=== PATIENT | male | born 1935 | race Caucasian/White ===

== ENCOUNTER 2021-08-26 14:49 | Inpatient (IN) | payer OTHER, MEDICARE, SELFPAY ==
[~2021-08-26] VITALS: Ht 162.6 cm; Wt 61.9 kg
[2021-08-26 14:50] VITALS: BP_SYST 136
[2021-08-26 15:54] LABS: BASOPHILS % (AUTO) 0.2 % (0.0-2.0); EOSINOPHILS % (AUTO) 0.3 % (0.0-4.0); HEMOGLOBIN 13.7 g/dL (14.0-18.0); LYMPHOCYTES # (AUTO) 0.6 K/uL (1.0-5.5); LYMPHOCYTES % (AUTO) 16.4 % (20.5-51.5); MEAN CORPUSCULAR HEMOGLOBIN 33 pg (27-31); MEAN CORPUSCULAR HGB CONC 34 % (32-36); MEAN CORPUSCULAR VOLUME 97 fL (79.0-98.0); MONOCYTES # (AUTO) 0.5 K/uL (0.0-1.0); NEUTROPHILS # (AUTO) 2.7 K/uL (1.8-7.7); NEUTROPHILS % (AUTO) 71.1 % (40.0-70.0); PLATELET COUNT (AUTO) 93 K/uL (130-430); RED BLOOD CELL COUNT(AUTO) 4.14 MIL/uL (4.2-6.2); RED CELL DISTRIBUTION WIDTH 12.8 % (9.0-15.0); WHITE BLOOD COUNT (AUTO) 3.8 K/uL (4.8-10.8)
[2021-08-26 16:21] LABS: ANION GAP 9 (5-15); CALCIUM 8.5 mg/dL (8.4-11.0); CHLORIDE 100 mmol/L (98-107); CREATININE 0.97 mg/dL (0.55-1.30); GLUCOSE 154 mg/dL (70-99); POTASSIUM 3.7 mmol/L (3.5-5.1); SODIUM SERUM 134 mmol/L (136-145); UREA NITROGEN, BLOOD 19 mg/dL (8-21)
[2021-08-26 16:24] LABS: PROTHROMBIN TIME 10.4 SECS (9.5-12.5)
[2021-08-26 16:35] LABS: ALANINE AMINOTRANSFERASE 67 U/L (12-78); ALBUMIN 3.5 g/dL (3.4-4.8); ASPARTATE AMINOTRANSFERASE 40 U/L (10-37); TOTAL BILIRUBIN 0.3 mg/dL (0.0-1.0)
[2021-08-26 16:39] LABS: ACETAMINOPHEN < 1 ug/mL (1-30); ALCOHOL, BLOOD < 3 mg/dL (<10)
[2021-08-26 17:04] LABS: ACETONE, SERUM NEGATIVE (NEGATIVE)
[2021-08-26 17:11] LABS: C-REACTIVE PROTEIN QUANT 1.6 mg/dL (0-0.5)
[2021-08-26 17:32] LABS: BILIRUBIN,URINE NEGATIVE (NEGATIVE); CLARITY/URINE CLEAR (CLEAR); COLOR,URINE YELLOW (YELLOW); GLUCOSE,URINE NEGATIVE (NEGATIVE); KETONES,URINE NEGATIVE (NEGATIVE); LEUKOCYTE ESTERASE ,URINE NEGATIVE (NEGATIVE); NITRITE, URINE NEGATIVE (NEGATIVE); PH,URINE 6.5 (5.0-8.0); PROTEIN URINE NEGATIVE (NEGATIVE)
[2021-08-26 17:41] LABS: BLOOD, URINE TRACE (NEGATIVE)
[2021-08-26 17:50] LABS: BARBITURATE, URINE NEGATIVE (NEG <=200); BENZODIAZEPINE, URINE NEGATIVE (NEG <=150); CANNABINOID, URINE POSITIVE (NEG <=50); COCAINE, URINE NEGATIVE (NEG <=150); METHAMPHETAMINES SCREEN,URINE NEGATIVE (NEG <=500); OPIATE, URINE NEGATIVE (NEG <=100); PHENCYCLIDINE SCREEN,URINE NEGATIVE (NEG <=25); UR TRICYCLIC ANTIDEPRESSANTS NEGATIVE (NEG <=300); URINE AMPHETAMINE NEGATIVE (NEG <=500); URINE METHADONE NEGATIVE (NEG <=200); URINE OXYCODONE SCREEN NEGATIVE (NEG <=100); URINE PROPOXYPHENE SCREEN NEGATIVE (NEG <=300)
[2021-08-26 17:59] LABS: BACTERIA,URINE RARE /HPF (None Seen); MUCUS,URINE 1+ /LPF (None Seen); WBC,URINE 0-3 /HPF (0-3)
[2021-08-26] MEDS ORDERED: SACU1TAB PO (19:44)
[2021-08-26] MEDS ORDERED: MEMA5TAB PO (19:44)
[2021-08-26] MEDS ORDERED: LEVO25TA7 PO (19:44)
[2021-08-26] MEDS ORDERED: TAMS-11 PO (19:44)
[2021-08-26] MEDS ORDERED: ESCI10TA PO (19:44)
[2021-08-26] MEDS ORDERED: FINA5TAB3 PO (19:44)
[2021-08-26] MEDS ORDERED: LIP40 PO (19:44)
[2021-08-26] MEDS ORDERED: MULT-1089 PO (19:44)
[2021-08-26] MEDS ORDERED: CLOP75TA32 PO (19:44)
[2021-08-26] MEDS ORDERED: ASPI-1393 PO (19:44)
[2021-08-26] MEDS ORDERED: ASPIRIN 325 MG TABLET PO ONE (21:15)
[2021-08-26] MEDS ORDERED: LR 1,000 ML IV SCH (21:15)
[2021-08-26 23:00] VITALS: BP_SYST 151
[2021-08-26] MEDS ORDERED: ENOXAPARIN SODIUM 60 MG/0.6 ML SYRINGE SUBCUT ONE (23:00)
[2021-08-26] MEDS ORDERED: DEXTROSE 50% JECT 50 ML DISP.SYRIN IVP PRN (23:00)
[2021-08-26] MEDS ORDERED: INSULIN REGULAR, HUMAN 100 UNITS/ML, 10 ML VIAL (humuLIN R) SUBCUT PRN (23:00)
[2021-08-27] VITALS: BP_SYST 128
[2021-08-27 04:00] VITALS: BP_SYST 132
[2021-08-27] MEDS: LEVOTHYROXINE SODIUM 0.025 MG TABLET PO SCH (06:06)
[2021-08-27 06:53] LABS: HEMATOCRIT 40.4 % (36-54); HEMOGLOBIN 13.6 g/dL (14.0-18.0); MEAN CORPUSCULAR HEMOGLOBIN 33 pg (27-31); MEAN CORPUSCULAR HGB CONC 34 % (32-36); MEAN CORPUSCULAR VOLUME 97 fL (79.0-98.0); PLATELET COUNT (AUTO) 90 K/uL (130-430); RED BLOOD CELL COUNT(AUTO) 4.16 MIL/uL (4.2-6.2); WHITE BLOOD COUNT (AUTO) 3.8 K/uL (4.8-10.8)
[2021-08-27 07:24] LABS: ALANINE AMINOTRANSFERASE 55 U/L (12-78); ALBUMIN 3.3 g/dL (3.4-4.8); ASPARTATE AMINOTRANSFERASE 29 U/L (10-37); CALCIUM 8.9 mg/dL (8.4-11.0); CHLORIDE 101 mmol/L (98-107); CREATININE 0.76 mg/dL (0.55-1.30); FREE T4 (FREE THYROXINE) 1.1 ng/dl (0.8-1.5); GLUCOSE 103 mg/dL (70-99); POTASSIUM 3.4 mmol/L (3.5-5.1); SODIUM SERUM 136 mmol/L (136-145); THYROID STIMULATING HORMONE 2.28 uIu/mL (0.36-3.74); TOTAL BILIRUBIN 0.4 mg/dL (0.0-1.0); UREA NITROGEN, BLOOD 14 mg/dL (8-21)
[2021-08-27 08:00] VITALS: BP_SYST 137
[2021-08-27] MEDS: MULTIVITAMINS TAB 1 TABLET PO SCH (08:27)
[2021-08-27] MEDS: CLOPIDOGREL BISULFATE 75 MG TABLET PO SCH (08:27)
[2021-08-27] MEDS: MEMANTINE HCL 5 MG TABLET PO SCH (08:27)
[2021-08-27] MEDS: ASPIRIN 81 MG TABLET(ECOTRIN) PO SCH (08:27)
[2021-08-27] MEDS: FINASTERIDE 5 MG TABLET (PROSCAR) PO SCH (08:27)
[2021-08-27] MEDS: ENOXAPARIN SODIUM 60 MG/0.6 ML SYRINGE SUBCUT SCH ×2 (08:27→20:05)
[2021-08-27] MEDS: TAMSULOSIN HCL 0.4 MG CAP PO SCH ×2 (08:27→20:04)
[2021-08-27] MEDS: SACUBITRIL/VALSARTAN 24 MG-26 MG 1 TABLET PO SCH (08:28)
[2021-08-27 12:39] VITALS: BP_SYST 135
[2021-08-27 14:11] LABS: ANION GAP 11 (5-15)
[2021-08-27 16:32] VITALS: BP_SYST 130
[2021-08-27 17:20] LABS: CHOLESTEROL 117 mg/dL (<200); HDL CHOLESTEROL 36 mg/dL (>45); LDL CHOLESTEROL 88 mg/dL (<100); TRIGLYCERIDES 41 mg/dL (30-150)
[2021-08-27] MEDS ORDERED: POTASSIUM CHLORIDE 20 MEQ TAB.PRT.SR PO ONE (17:45)
[2021-08-27 20:00] VITALS: BP_SYST 133
[2021-08-27] MEDS ORDERED: ATORVASTATIN 20 MG TABLET PO SCH (21:00)
[2021-08-28 01:41] VITALS: BP_SYST 125
[2021-08-28] MEDS: LEVOTHYROXINE SODIUM 0.025 MG TABLET PO SCH (05:58)
[2021-08-28 06:06] LABS: FOLATE (FOLIC ACID) 11.2 ng/mL (>3.0)
[2021-08-28 07:15] LABS: BASOPHILS % (AUTO) 0.6 % (0.0-2.0); EOSINOPHILS % (AUTO) 1.3 % (0.0-4.0); HEMATOCRIT 38.6 % (36-54); HEMOGLOBIN 13.2 g/dL (14.0-18.0); LYMPHOCYTES # (AUTO) 1.3 K/uL (1.0-5.5); LYMPHOCYTES % (AUTO) 43.9 % (20.5-51.5); MEAN CORPUSCULAR HEMOGLOBIN 33 pg (27-31); MEAN CORPUSCULAR HGB CONC 34 % (32-36); MEAN CORPUSCULAR VOLUME 96 fL (79.0-98.0); MONOCYTES # (AUTO) 0.5 K/uL (0.0-1.0); NEUTROPHILS % (AUTO) 35.2 % (40.0-70.0); PLATELET COUNT (AUTO) 92 K/uL (130-430); RED BLOOD CELL COUNT(AUTO) 4.01 MIL/uL (4.2-6.2); RED CELL DISTRIBUTION WIDTH 12.9 % (9.0-15.0); WHITE BLOOD COUNT (AUTO) 2.9 K/uL (4.8-10.8)
[2021-08-28 07:17] LABS: BASOPHILS % (MANUAL) 0 % (0-2); EOSINOPHILS % (MANUAL) 0 % (0-7); LYMPHOCYTES % (MANUAL) 35 % (20-46); MONOCYTES % (MANUAL) 15 % (0-11)
[2021-08-28 07:47] LABS: ANION GAP 8 (5-15); CALCIUM 9.5 mg/dL (8.4-11.0); CHLORIDE 103 mmol/L (98-107); CREATININE 0.79 mg/dL (0.55-1.30); GLUCOSE 101 mg/dL (70-99); POTASSIUM 4.2 mmol/L (3.5-5.1); SODIUM SERUM 136 mmol/L (136-145); UREA NITROGEN, BLOOD 19 mg/dL (8-21)
[2021-08-28 08:08] VITALS: BP_SYST 130
[2021-08-28] MEDS: FINASTERIDE 5 MG TABLET (PROSCAR) PO SCH (08:41)
[2021-08-28] MEDS: CLOPIDOGREL BISULFATE 75 MG TABLET PO SCH (08:41)
[2021-08-28] MEDS: MULTIVITAMINS TAB 1 TABLET PO SCH (08:41)
[2021-08-28] MEDS: SACUBITRIL/VALSARTAN 24 MG-26 MG 1 TABLET PO SCH (08:41)
[2021-08-28] MEDS: ASPIRIN 81 MG TABLET(ECOTRIN) PO SCH (08:41)
[2021-08-28] MEDS: MEMANTINE HCL 5 MG TABLET PO SCH (08:41)
[2021-08-28] MEDS: TAMSULOSIN HCL 0.4 MG CAP PO SCH (08:42)
[2021-08-28] MEDS: ENOXAPARIN SODIUM 60 MG/0.6 ML SYRINGE SUBCUT SCH (08:46)
[2021-08-28] MEDS ORDERED: ESCITALOPRAM OXALATE 10 MG TABLET PO SCH (09:00)
[2021-08-28] MEDS ORDERED: CITALOPRAM HYDROBROMIDE 20 MG TABLET PO SCH (09:00)
[2021-08-28 11:40] VITALS: BP_SYST 125
[2021-08-28 15:33] VITALS: BP_SYST 131
[2021-08-28 17:11] VITALS: BP_SYST 131
== END 2021-08-28 20:50 | DRG 280 ==
LOC: SED 14:49 → STU 21:10
PROVIDERS: ADMIT Internal Medicine; ATTEND Internal Medicine
DX: I21.4 Non-ST elevation (NSTEMI) myocardial infarction (principal); G93.41 Metabolic encephalopathy; I69.951 Hemiplegia and hemiparesis following unspecified cerebrovascular disease affecting right dominant side; I42.9 Cardiomyopathy, unspecified; G91.2 (Idiopathic) normal pressure hydrocephalus; I50.9 Heart failure, unspecified; F02.80 Dementia in other diseases classified elsewhere, unspecified severity, without behavioral disturbance, psychotic disturbance, mood disturbance, and anxiety; G30.9 Alzheimer's disease, unspecified; E78.5 Hyperlipidemia, unspecified; E03.9 Hypothyroidism, unspecified; Z20.822 Contact with and (suspected) exposure to COVID-19; I11.0 Hypertensive heart disease with heart failure; N40.0 Benign prostatic hyperplasia without lower urinary tract symptoms; Z88.0 Allergy status to penicillin; Z79.82 Long term (current) use of aspirin; Z79.899 Other long term (current) drug therapy; Z98.2 Presence of cerebrospinal fluid drainage device; Z79.890 Hormone replacement therapy; Z79.02 Long term (current) use of antithrombotics/antiplatelets
CPT/HCPCS: 36415; 70450-TC; 71045; 76376; 80048; 80053; 80061; 80307; 81000; 82009; 82140; 82550; 82607; 82746; 82962; 83605; 83880; 84439; 84443; 84484; 85007; 85025; 85027; 85610-TC; 85730-TC; 86140; 87040-TC; 87081; 92610-GN; 93005; 93306; 96360; 97110-GP; 97116-GP; 97163-GP; 97530-GP; 99285; G0378; G0480; G0481; G0482; J1650

== ENCOUNTER 2021-09-15 13:09 | Inpatient (IN) | payer OTHER, MEDICARE, SELFPAY ==
--- NOTE | 2021-09-11 23:40 | NUR ---
ATB NEW ORDER ANTIBIOTIC ROCEPHIN AND ZITHROMAX TOLERATED. NO ADVERSE REACTIONS NOTED.
[~2021-09-15] VITALS: Ht 167.6 cm; Wt 65.8 kg
[~2021-09-15 13:09] MED LIST: ASPI-1393 PO; ESCI10TA PO; FINA5TAB3 PO; LEVO25TA7 PO; LIP40 PO; MEMA5TAB PO; MULT-1089 PO; SACU1TAB PO; TAMS-11 PO
[2021-09-15 13:47] VITALS: BP_SYST 159
--- NOTE | 2021-09-15 13:48 | NUR ---
Patient to ER bed 8 to gown for evaluation. Side rails up.
--- NOTE | 2021-09-15 13:50 | NUR ---
EDGAR Robins at bedside examining patient.
--- NOTE | 2021-09-15 14:00 | NUR ---
PT SENT FROM [facility] FOR EVALUATION OF LOW O2 SAT AND FEVER.
--- NOTE | 2021-09-15 14:00 | NUR ---
ER at bedside examining patient.
--- NOTE | 2021-09-15 14:30 | NUR ---
PT HAS NO RESP DISTRESS AT THIS TIME.PT VSS.CONTINUING TO MONITOR.
[2021-09-15 15:00] LABS: BASOPHILS % (AUTO) 0.4 % (0.0-2.0); HEMATOCRIT 39.6 % (36-54); HEMOGLOBIN 13.3 g/dL (14.0-18.0); LYMPHOCYTES # (AUTO) 0.2 K/uL (1.0-5.5); LYMPHOCYTES % (AUTO) 1.9 % (20.5-51.5); MEAN CORPUSCULAR HEMOGLOBIN 33 pg (27-31); MEAN CORPUSCULAR HGB CONC 34 % (32-36); MEAN CORPUSCULAR VOLUME 97 fL (79.0-98.0); MONOCYTES # (AUTO) 0.6 K/uL (0.0-1.0); MONOCYTES % (AUTO) 5.4 % (1.7-9.3); NEUTROPHILS # (AUTO) 10.2 K/uL (1.8-7.7); NEUTROPHILS % (AUTO) 92.3 % (40.0-70.0); PLATELET COUNT (AUTO) 112 K/uL (130-430); RED BLOOD CELL COUNT(AUTO) 4.08 MIL/uL (4.2-6.2); RED CELL DISTRIBUTION WIDTH 12.6 % (9.0-15.0)
[2021-09-15 15:16] LABS: ANION GAP 8 (5-15); CALCIUM 8.7 mg/dL (8.4-11.0); CHLORIDE 103 mmol/L (98-107); CREATININE 0.95 mg/dL (0.55-1.30); GLUCOSE 105 mg/dL (70-99); POTASSIUM 4.2 mmol/L (3.5-5.1); SODIUM SERUM 138 mmol/L (136-145); UREA NITROGEN, BLOOD 17 mg/dL (8-21)
[2021-09-15 15:22] LABS: ALANINE AMINOTRANSFERASE 46 U/L (12-78); ALBUMIN 3.7 g/dL (3.4-4.8); ASPARTATE AMINOTRANSFERASE 22 U/L (10-37); TOTAL BILIRUBIN 0.7 mg/dL (0.0-1.0)
--- NOTE | 2021-09-15 15:30 | NUR ---
SPOKE WITH FAMILY. PT PROVIDED FURTHER INFORMATION REGARDING PT PRIOR TO ARRIVAL OF EMS AT FACILITY. PT POSSSIBLY ASPIRATED WHILE EATING WITH FAMILY.
[2021-09-15] MEDS ORDERED: NACL 0.9% 1,000 ML IV ONE (16:00)
[2021-09-15] MEDS ORDERED: VANCOMYCIN HCL 1,000 MG in NS 250 ML IV ONE (17:30)
[2021-09-15] MEDS ORDERED: CEFEPIME 2 GM in D5W 100 ML IV ONE (17:30)
--- NOTE | 2021-09-15 18:30 | NUR ---
ADMISSION ORDERS RECEIVED. PT REMAINS STABLE. AFEBRILE.O2 SAT MAINTAINED AT 96% ON 2L NC.
[2021-09-15] MEDS ORDERED: VANCOMYCIN HCL 1000 MG/VIAL IV ONE (18:49)
--- NOTE | 2021-09-15 19:20 | NUR ---
PT ENDORSED TO TIFFANY BELCHER.
--- NOTE | 2021-09-15 20:03 | NUR ---
ASSUMED CARE OF PT FROM JEANIE BELCHER, PT IS BEING GIVEN VANCO AND AWAITING FOR A ROOM ASSIGNENT
--- NOTE | 2021-09-15 20:14 | NUR ---
PT IS FULL CODE
--- NOTE | 2021-09-15 20:15 | NUR ---
Medication reconciliation completed with information provided by FACILITY. Any prior medication reconciliation on file was reviewed and corrected.
--- NOTE | 2021-09-15 20:52 | NUR ---
Transfer to TELEMETRY- 122 via ACLS protocol. Licensed nurse present. IV present no signs or symptoms of infiltration.
--- NOTE | 2021-09-15 21:00 | NUR ---
ADMISSION NOTES RECEIVED PATIENT FROM ER ADMITTED FOR BILATERAL PNEUMONIA. PATIENT AWAKE/CONFUSED. DOES NOT INTERACT TO STAFF. DOES NOT ANSWER TO QUESTIONS. VITAL SIGNS STABLE. ADMISSION PROCESS INITIATED. BED IN LOWEST LOCKED POSITION WITH ALARM ON. PLACED CALL LIGHT WITH IN REACH.
[2021-09-15 21:15] VITALS: BP_SYST 154
[2021-09-15] MEDS ORDERED: LevALBUTEROL HCL 1.25 MG/0.5 ML *CONC.* VIAL.NEB (XOPENEX CONC.) INH PRN (22:00)
[2021-09-15] MEDS: NACL 0.9% 1,000 ML IV SCH (22:02)
--- NOTE | 2021-09-15 22:02 | NUR ---
IVF PATIENT STARTED ON IVF ORDERED. IV LINE INTACT AND PATENT.
[2021-09-15] MEDS ORDERED: cloNIDine HCL 0.1 MG TABLET PO PRN (22:15)
[2021-09-15] MEDS: cefTRIAXone 1 GM in D5W 50 ML IV SCH (22:51)
[2021-09-15] MEDS ORDERED: cefTRIAXone 1 GM VIAL ONE (22:52)
[2021-09-15] MEDS ORDERED: AZITHROMYCIN 500 MG/VIAL (ZITHROMAX) IV ONE (22:52)
[2021-09-15] MEDS: AZITHROMYCIN 500 MG in NS 250 ML IV SCH (23:16)
[2021-09-16 00:30] VITALS: BP_SYST 130
--- NOTE | 2021-09-16 02:01 | NUR ---
ROUNDS PATIENT RESTING IN BED. BREATHING UNLABORED. 02 SAT 98%.
--- NOTE | 2021-09-16 05:30 | NUR ---
AM CARE INCONTINENCE CARE DONE. PATIENT MORE CONVERSANT THIS MORNING.
[2021-09-16] MEDS: LEVOTHYROXINE SODIUM 0.025 MG TABLET PO SCH (06:09)
[2021-09-16 06:10] VITALS: BP_SYST 130
--- NOTE | 2021-09-16 06:44 | NUR ---
CLOSING NOTES PATIENT NEEDS ATTENDED. BED ALARM ON.
[2021-09-16] MEDS: LevALBUTEROL HCL 1.25 MG/0.5 ML *CONC.* VIAL.NEB (XOPENEX CONC.) INH SCH ×3 (07:01→22:40)
[2021-09-16 07:25] LABS: BASOPHILS % (AUTO) 0.1 % (0.0-2.0); HEMATOCRIT 36.5 % (36-54); HEMOGLOBIN 12.2 g/dL (14.0-18.0); LYMPHOCYTES # (AUTO) 1.1 K/uL (1.0-5.5); LYMPHOCYTES % (AUTO) 5.6 % (20.5-51.5); MEAN CORPUSCULAR HEMOGLOBIN 32 pg (27-31); MEAN CORPUSCULAR HGB CONC 33 % (32-36); MEAN CORPUSCULAR VOLUME 97 fL (79.0-98.0); MONOCYTES # (AUTO) 1.4 K/uL (0.0-1.0); MONOCYTES % (AUTO) 7.4 % (1.7-9.3); NEUTROPHILS # (AUTO) 16.4 K/uL (1.8-7.7); NEUTROPHILS % (AUTO) 86.9 % (40.0-70.0); PLATELET COUNT (AUTO) 99 K/uL (130-430); RED BLOOD CELL COUNT(AUTO) 3.76 MIL/uL (4.2-6.2); RED CELL DISTRIBUTION WIDTH 12.8 % (9.0-15.0); WHITE BLOOD COUNT (AUTO) 18.9 K/uL (4.8-10.8)
--- NOTE | 2021-09-16 08:01 | NUR ---
PATIENT IN BED, NO S/S OF DISTRESS, 2L NASAL CANULA O2 SAT >95%, INTERMITTENTLY SLEEPING, IV LFA 20G INTACT/PATENT RUNNING NS @75ML/HR, BED IN LOWEST LOCKED POSITION, SAFETY MEASURES IN PLACE, CALL LIGHT WITHIN REACH, WILL CONTINUE TO MONITOR.
[2021-09-16 08:16] LABS: ANION GAP 11 (5-15); CALCIUM 8.5 mg/dL (8.4-11.0); CHLORIDE 105 mmol/L (98-107); CREATININE 0.91 mg/dL (0.55-1.30); GLUCOSE 114 mg/dL (70-99); POTASSIUM 3.7 mmol/L (3.5-5.1); SODIUM SERUM 139 mmol/L (136-145); UREA NITROGEN, BLOOD 13 mg/dL (8-21)
[2021-09-16] MEDS: CITALOPRAM HYDROBROMIDE 20 MG TABLET PO SCH (08:38)
[2021-09-16] MEDS: MULTIVITAMINS TAB 1 TABLET PO SCH (08:38)
[2021-09-16] MEDS: ASPIRIN 81 MG TABLET(ECOTRIN) PO SCH (08:38)
[2021-09-16] MEDS: TAMSULOSIN HCL 0.4 MG CAP PO SCH ×3 (08:38→22:17)
[2021-09-16] MEDS: SACUBITRIL/VALSARTAN 24 MG-26 MG 1 TABLET PO SCH (08:39)
[2021-09-16] MEDS: NACL 0.9% 1,000 ML IV SCH ×2 (08:39→21:56)
[2021-09-16] MEDS: MEMANTINE HCL 5 MG TABLET PO SCH (08:39)
[2021-09-16] MEDS: FINASTERIDE 5 MG TABLET (PROSCAR) PO SCH (08:39)
[2021-09-16] MEDS ORDERED: ESCITALOPRAM OXALATE 10 MG TABLET PO SCH (09:00)
--- NOTE | 2021-09-16 10:09 | NUR ---
Nutrition Update : Dionicio Scale: 15 noted Pt admitted for Shortness of Breath. Diet: 2g Na, mechanical soft. BMI: UTD RD to follow per nutrition care standards.
[2021-09-16 11:29] VITALS: BP_SYST 109
--- NOTE | 2021-09-16 12:00 | NUR ---
PATIENT IN BED, NO S/S OF DISTRESS, TOLERATING CARE, PATIENT IS CONFUSED BUT FOLLOWS SIMPLE COMMANDS AND IS ABLE TO EAT HIS MEALS WIT ASSISTANCE, NO NEW NEEDS AT THIS TIME.
[2021-09-16 16:22] VITALS: BP_SYST 105
--- NOTE | 2021-09-16 18:32 | NUR ---
CONSULTATION PAGED/CALLED Reason for Consultation: ELEVATED TROP. TRENDING UP Person Who was Notified: EXCHANGE Consulting Physician: SUJATA Lan Manager Specialty: Ordering Physician: ANDREW
[2021-09-16 19:00] VITALS: BP_SYST 108
--- NOTE | 2021-09-16 19:00 | NUR ---
PATIENT IN BED, NO S/S OF DISTRESS, FED HIM HIS DINNER AND TOLERATED WELL, VITAL SIGNS STABLE, IV INTACT PATENT, NO NEW NEEDS AT THIS TIME ENDORSING CARE TO CLIENT EVALUATOR.
--- NOTE | 2021-09-16 19:15 | NUR ---
change of shift.pt.presents isolation status;droplet;covid19;pui status.pt.presents quiescent affect;calm,somnolent.pt.presents iv access location lt.hand intact iv fluids infusing.per flacc pain mgx pt.absent facial grimaces/body posturing.call light/telephone w/in access of the pt.
[2021-09-16 20:00] VITALS: BP_SYST 108
--- NOTE | 2021-09-16 20:00 | NUR ---
pt.assessed.v/s assessed values wnl.per flacc pain mgx pt.absent facial grimaces/body posturing.pt.assessed for cleanliness. pt.repositioned.iv access intact iv fluids infusing.general status stable.respiratory status stable;unlabored@room air.call light/telephone placed w/in access of the pt.
[2021-09-16] MEDS ORDERED: ENOXAPARIN SODIUM 40 MG/0.4 ML SYRINGE SUBCUT SCH (21:00)
--- NOTE | 2021-09-16 21:00 | NUR ---
2100p medications administered.medications required to be crushed mixture apple sauce.abx ivpb rocephin/zirthromax administered.iv fluids bag changed.per flacc pain mgx pt.absent facial grimaces/body posturing.pt.assessed for cleanliness pt.repositioned.call light/telephone placed w/in access of the pt.
[2021-09-16] MEDS: cefTRIAXone 1 GM in D5W 50 ML IV SCH (21:57)
[2021-09-16] MEDS: ATORVASTATIN 20 MG TABLET PO SCH (21:57)
[2021-09-16] MEDS: AZITHROMYCIN 500 MG in NS 250 ML IV SCH (21:58)
--- NOTE | 2021-09-16 22:00 | NUR ---
pt.assessed.pt.presents quiescent affect;calm,somnolent.per flacc pain mgx pt.absent facial grimaces/body posturing. pt.assessed for cleanliness.pt repositioned.iv access intact iv fluids infusing.call light/telephone placed w/in access of the pt.
[2021-09-17] VITALS: BP_SYST 142
--- NOTE | 2021-09-17 | NUR ---
pt.assessed.values wnl.per flacc pain mgx pt.absent facial grimaces/body posturing.pt.assessed for cleanliness.pt.repositioned. iv access intact iv fluids infusing.general status stable.respiratory status stable;unlabored.call light/telephone placed w/in access of the pt.
--- NOTE | 2021-09-17 02:00 | NUR ---
pt.assessed.pt.presents quiescent affect;calm,somnolent.per flacc pain mgx pt.absent facial grimaces/body posturing. iv access intact iv fluids infusing.pt.assessed for cleanliness.pt.repositioned.call light/telephone placed w/in access of the pt.
--- NOTE | 2021-09-17 04:00 | NUR ---
pt.assessed.pt.presents quiescent affect;calm,somnolent.per flacc pain mgx pt.absent facial grimaces/body posturing pt.assessed for cleanliness.pt.repositioned.scab;wound noticed.i have photographed the scab;wound;sacrum/buttocks. order for wcn placed.call light/telephone placed w/in access of the pt.
[2021-09-17] MEDS: LEVOTHYROXINE SODIUM 0.025 MG TABLET PO SCH (05:29)
--- NOTE | 2021-09-17 06:00 | NUR ---
pt.assessed.pt.presents quiescent affect;calm,somnolent.per flacc pain mgx pt.absent facial grimaces/body posturing.iv access intact iv fluids infusing.pt.assessed for cleanliness.pt.repositioned.i have administered synthroid 0700a dose@this hour.call light/telephone placed w/in access of the pt.
[2021-09-17 06:52] LABS: BASOPHILS % (AUTO) 0.4 % (0.0-2.0); EOSINOPHILS % (AUTO) 0.5 % (0.0-4.0); HEMATOCRIT 32.3 % (36-54); LYMPHOCYTES # (AUTO) 0.8 K/uL (1.0-5.5); LYMPHOCYTES % (AUTO) 11.1 % (20.5-51.5); MEAN CORPUSCULAR HEMOGLOBIN 33 pg (27-31); MEAN CORPUSCULAR HGB CONC 34 % (32-36); MEAN CORPUSCULAR VOLUME 97 fL (79.0-98.0); MONOCYTES # (AUTO) 0.8 K/uL (0.0-1.0); NEUTROPHILS # (AUTO) 5.9 K/uL (1.8-7.7); PLATELET COUNT (AUTO) 77 K/uL (130-430); RED BLOOD CELL COUNT(AUTO) 3.32 MIL/uL (4.2-6.2); RED CELL DISTRIBUTION WIDTH 13.1 % (9.0-15.0); WHITE BLOOD COUNT (AUTO) 7.6 K/uL (4.8-10.8)
[2021-09-17 07:38] LABS: ANION GAP 9 (5-15); CALCIUM 8.2 mg/dL (8.4-11.0); CHLORIDE 107 mmol/L (98-107); CREATININE 0.86 mg/dL (0.55-1.30); GLUCOSE 105 mg/dL (70-99); POTASSIUM 3.4 mmol/L (3.5-5.1); SODIUM SERUM 139 mmol/L (136-145); UREA NITROGEN, BLOOD 16 mg/dL (8-21)
[2021-09-17] MEDS: LevALBUTEROL HCL 1.25 MG/0.5 ML *CONC.* VIAL.NEB (XOPENEX CONC.) INH SCH ×3 (09:42→23:00)
[2021-09-17] MEDS: SACUBITRIL/VALSARTAN 24 MG-26 MG 1 TABLET PO SCH (09:47)
[2021-09-17] MEDS: TAMSULOSIN HCL 0.4 MG CAP PO SCH ×2 (09:47→21:00)
[2021-09-17] MEDS: MULTIVITAMINS TAB 1 TABLET PO SCH (09:47)
[2021-09-17] MEDS: FINASTERIDE 5 MG TABLET (PROSCAR) PO SCH (09:47)
[2021-09-17] MEDS: MEMANTINE HCL 5 MG TABLET PO SCH (09:47)
[2021-09-17] MEDS: ASPIRIN 81 MG TABLET(ECOTRIN) PO SCH (09:47)
[2021-09-17] MEDS: NACL 0.9% 1,000 ML IV SCH ×2 (09:59→23:35)
[2021-09-17 12:52] VITALS: BP_SYST 130
[2021-09-17 16:21] VITALS: BP_SYST 130
--- NOTE | 2021-09-17 18:35 | NUR ---
came into shift day shift LARGE SHEETFED PRESS OPERATOR stated pt was able to feed him self during report DR. Moreira called for me and day shift LARGE SHEETFED PRESS OPERATOR shwetha stated that pt food was cold and he needs to be fed day shift LARGE SHEETFED PRESS OPERATOR stated she passed tray at 5pm and that she does not feed the patients i asked Dr. Moreira if the diet was ok for the patient he sated yet i just fed him x3 also asked the day shift nurse was the diet ok, she stated she fed him the day before and he was ok to eat because he had teeth. i began to feed the patient he had 3 spoons of mash potatoes and 3 spoons of vegetables which was mechanical soft i then gave him one piece of chicken and patient began to cough i then offered him water pt keep coughing i then check his mouth and there was nothing there i called for the nurse she then suction him and nothing came up respiratory was called, i then went to Dr. Moreira and told him that i fed the patient and patient is now coughing and that he could be possible chocking on his food but there was nothing in his mouth he stated that he had already feed him and he was ok i told him i gave him the chicken and he then began to cough day shift RN, charge Nurse and billing supervisor are aware
--- NOTE | 2021-09-17 19:00 | NUR ---
RECEIVED BEDSIDE REPORT TO FROM DAY RN. PT HAD JUST ASPIRATED ON SPINACH. MD AT BEDSIDE. PT SEEN BY MD AND ORDERED TO TRANSFER TO ICU. CHEST SRAY, ABG AND SUCTION DONE. PT TRANSFERRED TPO ICU BED 8. REPORT GIVEN AT BEDSIDE. ENDORSED CARE TO ICU NURSE. MD NOTIFIED OF TRANSFER COMPLETED.
--- NOTE | 2021-09-17 19:41 | NUR ---
PATIENT HAS NOT BEEN FED FOOD, DR MORALES ORDERED TO FEED PATIENT IMMEDIATELY, THE PATIENT WAS THEN BEING FED AND BEGAN COUGHING PER REPORT AT 1850, ENTERED ROOM AND NOTED PATIENT WAS COUGHING, CHECKED OXYGEN SATURATION AND TRIED TO HAVE PATIENT SPIT FOOD OUT, WAS UNABLE TO SPIT OUT FOOD SO GOT SUCTION AND YANKER AND ORAL SUCTIONED PATIENT, WELL PROVIDED OXYGEN 4L NASAL CANULA SINCE PATIENT DESATURATED TO 60%, CALLED RT, RT CAME TO BEDSIDE AND AIDED IN SUCTION AND PLACED PATIENT ON SIMPLE MASK, PATIENT SATURATION RIC TO 80%s BUT THEN HEART RATE JUMPED TO 170BPM, DR MORALES CAME TO BEDSIDE AND ORDERED TO DEEP SUCTION AND GIVE BREATHING TREATMENT, RT PROVIDING NOW, ENDORSED CONTINUATION OF CARE TO AIRCRAFT ELECTRICIAN.
[2021-09-17] MEDS ORDERED: methylPREDNISolone SOD SUCC/PF 62.5 MG/ML VIAL IVP ONE (20:00)
--- NOTE | 2021-09-17 20:30 | NUR ---
Received report from MST nurse. Patient arrived to ICU via bed and transferred to ICU nurse. NRM in place at 15 L with O2 saturations 94%. HR 135 and RR 36. Labored breathing noted with short inspiratory process and tachypneic. As per report, ABG's has been drawn and waiting for results to report to set making machine operator prescription benefit specialist for Dr Farooq. will continue to monitor.
--- NOTE | 2021-09-17 20:49 | NUR ---
PAGED DR. HOWELL LOGISTICS AND PLANNING MANAGER FOR DR. SALEEM ORDERS [phone] SPOKE WITH ARISTIDES
--- NOTE | 2021-09-17 20:51 | NUR ---
ABG results reported to Dr Yost. Orders received to place patient on Bipap with settings 10/5 BR 20 and to titrate FIO2 to keep O2 sats >92%. Draw ABG's 2 hrs after starting patient on bipap and report results to Dr Yost. Order to place frazier catheter also received.
[2021-09-17 21:00] VITALS: BP_SYST 145
[2021-09-17] MEDS: ATORVASTATIN 20 MG TABLET PO SCH (21:00)
--- NOTE | 2021-09-17 21:00 | NUR ---
Called family and left message for Ricardo Driver at to report patient transferred to ICU. Message included reasons for transfer to ICU and call back number for this nurse. waiting for family to call back.
--- NOTE | 2021-09-17 21:10 | NUR ---
Hernandes catheter placed as per MD orders. No resistance met during placement despite Hx of BPH. Using sterile technique 16 F. catheter was inserted. Yellow urine flash back noted and balloon was inflated in patient's bladder. will continue to monitor.
--- NOTE | 2021-09-17 21:30 | NUR ---
Patient was placed on Bipap at this time by RT with settings as per MD. will draw ABG's in two hours.
[2021-09-17 22:00] VITALS: BP_SYST 134
[2021-09-17] MEDS: cefTRIAXone 1 GM in D5W 50 ML IV SCH (22:58)
[2021-09-17] MEDS: AZITHROMYCIN 500 MG in NS 250 ML IV SCH (22:58)
[2021-09-17 23:00] VITALS: BP_SYST 137
--- NOTE | 2021-09-17 23:30 | NUR ---
ABG's drawn by Derrick HEADLEY. waiting for results.
--- NOTE | 2021-09-17 23:38 | NUR ---
PAGED DR. HOWELL [facility] RESULTS [phone] SPOKE WITH TARUN
--- NOTE | 2021-09-17 23:45 | NUR ---
ABG results reported to Dr Yost. Orders to continue with bipap received. patient tolerating well.
[2021-09-18] VITALS (23 sets, daily range): BP systolic 135–171
--- NOTE | 2021-09-18 00:30 | NUR ---
Assessment completed. Patient repositioned for comfort using pillows for support. will continue to monitor.
[2021-09-18 06:22] LABS: BASOPHILS % (AUTO) 0.3 % (0.0-2.0); HEMATOCRIT 38.2 % (36-54); HEMOGLOBIN 12.7 g/dL (14.0-18.0); LYMPHOCYTES # (AUTO) 0.1 K/uL (1.0-5.5); LYMPHOCYTES % (AUTO) 0.9 % (20.5-51.5); MEAN CORPUSCULAR HEMOGLOBIN 33 pg (27-31); MEAN CORPUSCULAR HGB CONC 33 % (32-36); MEAN CORPUSCULAR VOLUME 98 fL (79.0-98.0); MONOCYTES # (AUTO) 0.3 K/uL (0.0-1.0); MONOCYTES % (AUTO) 1.8 % (1.7-9.3); NEUTROPHILS # (AUTO) 15.8 K/uL (1.8-7.7); PLATELET COUNT (AUTO) 83 K/uL (130-430); RED CELL DISTRIBUTION WIDTH 12.7 % (9.0-15.0); WHITE BLOOD COUNT (AUTO) 16.3 K/uL (4.8-10.8)
--- NOTE | 2021-09-18 06:30 | NUR ---
Dr Torres at bedside for consultation and assessment. Received orders to ask RT to take patient off bipap and assess ability to tolerate.
[2021-09-18] MEDS: methylPREDNISolone SOD SUCC/PF 62.5 MG/ML VIAL IVP SCH ×3 (06:40→18:14)
[2021-09-18] MEDS: LEVOTHYROXINE SODIUM 0.025 MG TABLET PO SCH (06:40)
[2021-09-18 06:50] LABS: ANION GAP 14 (5-15); CALCIUM 8.2 mg/dL (8.4-11.0); CHLORIDE 105 mmol/L (98-107); CREATININE 0.91 mg/dL (0.55-1.30); GLUCOSE 197 mg/dL (70-99); POTASSIUM 3.9 mmol/L (3.5-5.1); SODIUM SERUM 140 mmol/L (136-145); UREA NITROGEN, BLOOD 16 mg/dL (8-21)
[2021-09-18 07:38] LABS: PROTHROMBIN TIME 10.2 SECS (9.5-12.5)
[2021-09-18] MEDS: NACL 0.9% 1,000 ML IV SCH (08:18)
[2021-09-18] MEDS: PIPERACILLIN/TAZO 3.375/DEX-IS 50 ML IV SCH ×3 (08:39→22:00)
[2021-09-18] MEDS: FINASTERIDE 5 MG TABLET (PROSCAR) PO SCH (09:00)
[2021-09-18] MEDS: SACUBITRIL/VALSARTAN 24 MG-26 MG 1 TABLET PO SCH (09:00)
[2021-09-18] MEDS: MULTIVITAMINS TAB 1 TABLET PO SCH (09:00)
[2021-09-18] MEDS: ASPIRIN 81 MG TABLET(ECOTRIN) PO SCH (09:00)
[2021-09-18] MEDS: TAMSULOSIN HCL 0.4 MG CAP PO SCH ×2 (09:00→20:36)
[2021-09-18] MEDS: CITALOPRAM HYDROBROMIDE 20 MG TABLET PO SCH (09:00)
[2021-09-18] MEDS: MEMANTINE HCL 5 MG TABLET PO SCH (09:00)
--- NOTE | 2021-09-18 13:45 | NUR ---
Dietitian Recommendations * Consider ST max shabazz prior to diet advancement LP, RD Please refer to Nutrition Assessment for details. Addendum: 09/18/21 at [address] Amended: Links added.
[2021-09-18] MEDS: hydrALAZINE HCL 20 MG/ML VIAL IVP PRN (18:46)
[2021-09-18] MEDS: ATORVASTATIN 20 MG TABLET PO SCH (20:36)
[2021-09-18] MEDS: AZITHROMYCIN 500 MG in NS 250 ML IV SCH (21:39)
[2021-09-18] MEDS: LevALBUTEROL HCL 1.25 MG/0.5 ML *CONC.* VIAL.NEB (XOPENEX CONC.) INH SCH (23:00)
[2021-09-19] VITALS (24 sets, daily range): BP systolic 101–181
[2021-09-19] MEDS: methylPREDNISolone SOD SUCC/PF 62.5 MG/ML VIAL IVP SCH ×4 (00:43→17:36)
[2021-09-19] MEDS: NACL 0.9% 1,000 ML IV SCH (02:15)
[2021-09-19] MEDS: PIPERACILLIN/TAZO 3.375/DEX-IS 50 ML IV SCH ×2 (06:40→13:50)
[2021-09-19] MEDS: LEVOTHYROXINE SODIUM 0.025 MG TABLET PO SCH (07:00)
[2021-09-19] MEDS: D5/0.45 NS 1,000 ML IV SCH ×2 (07:50→23:33)
[2021-09-19] MEDS: LevALBUTEROL HCL 1.25 MG/0.5 ML *CONC.* VIAL.NEB (XOPENEX CONC.) INH SCH ×2 (07:59→16:00)
--- NOTE | 2021-09-19 08:00 | NUR ---
A/Ox1, SR- ST on monitor. IV on the left FA, #20, infusing D5 1/2 NS, site intact and patent. On COVID isolation; call light in place, bed locked at the lowest position, will continue to monitor closely.
[2021-09-19] MEDS: SACUBITRIL/VALSARTAN 24 MG-26 MG 1 TABLET PO SCH (09:00)
[2021-09-19] MEDS: ASPIRIN 81 MG TABLET(ECOTRIN) PO SCH (09:00)
[2021-09-19] MEDS: TAMSULOSIN HCL 0.4 MG CAP PO SCH ×2 (09:00→21:00)
[2021-09-19] MEDS: MULTIVITAMINS TAB 1 TABLET PO SCH (09:00)
[2021-09-19] MEDS: MEMANTINE HCL 5 MG TABLET PO SCH (09:00)
[2021-09-19] MEDS: FINASTERIDE 5 MG TABLET (PROSCAR) PO SCH (09:00)
--- NOTE | 2021-09-19 10:20 | NUR ---
PATIENT IS RESTING AT THIS TIME. AROUSABLE TO NAME, BUT SOMEWHAT LETHARGIC. NO SIGNS OF ACUTE DISTRESS NOTED.
--- NOTE | 2021-09-19 12:37 | NUR ---
CONSULT ID CONSULTING MD: DR. FISCHER PERSON NOTIFIED: PENNY DIALED: [phone] ORDERED BY: DR. MORALES
--- NOTE | 2021-09-19 12:40 | NUR ---
DR. MORALES IS AT BEDSIDE; ORDERS AND CONSULTS ARE ORDERED.
--- NOTE | 2021-09-19 13:05 | NUR ---
DR. FISCHER CALLED. DETAILS OF THE PATIENT WERE INFORMED AND ORDERS WERE GIVEN.
--- NOTE | 2021-09-19 16:25 | NUR ---
TPN Notification and RD Recommendations RD received TPN Notification 09/19/[address] reviewed pt's most current EMR and recent Nutrition Assessment completed 09/18. Plan for PICC line placement per EMR review. RD Recommendation * TPN D40%, AA10% at 80 ml/hr (goal rate) via central line Provides: 1690 kcal/day, 96 gm protein/day, 1920 ml free water/day, and GIR: 4 gm CHO/kg/min Meets: 85% of lower end of estimated caloric needs and 97% of lower end of estimated protein needs RD relayed TPN rec to pharmD via phone call this afternoon. Pt is due to be seen for Nutrition F/U 09/21. RD to continue to follow as per nutrition care standards.
[2021-09-19 16:45] LABS: HEMOGLOBIN 13.3 g/dL (14.0-18.0); MEAN CORPUSCULAR HEMOGLOBIN 33 pg (27-31); MEAN CORPUSCULAR HGB CONC 33 % (32-36); MEAN CORPUSCULAR VOLUME 99 fL (79.0-98.0); PLATELET COUNT (AUTO) 98 K/uL (130-430); RED BLOOD CELL COUNT(AUTO) 4.02 MIL/uL (4.2-6.2); RED CELL DISTRIBUTION WIDTH 13.1 % (9.0-15.0)
[2021-09-19 16:52] LABS: PROTHROMBIN TIME 10.7 SECS (9.5-12.5)
--- NOTE | 2021-09-19 17:00 | NUR ---
PICC LINE INSERTION COMPLETED. PLACEMENT IS CONFIRMED PER PICC NURSE.
[2021-09-19 17:29] LABS: BAND % (MANUAL) 0 % (0-6); BASOPHILS % (MANUAL) 0 % (0-2); EOSINOPHILS % (MANUAL) 0 % (0-7); LYMPHOCYTES % (MANUAL) 2 % (20-46); MONOCYTES % (MANUAL) 3 % (0-11)
[2021-09-19] MEDS: hydrALAZINE HCL 20 MG/ML VIAL IVP PRN (17:35)
--- NOTE | 2021-09-19 18:00 | NUR ---
PATIENT IS SHAKING, AND TEMP AT 100.3F. DR. MORALES IS CALLED.
--- NOTE | 2021-09-19 18:12 | NUR ---
DR. MORALES CALLS BACK AND INFORMATION OF THE SITUATION IS UPDATED. ORDERS ARE GIVEN.
[2021-09-19] MEDS ORDERED: ACETAMINOPHEN 650 MG SUPP.RECT RC PRN (18:30)
[2021-09-19] MEDS ORDERED: *TPN PER PHARMACY XX PRN (21:00)
[2021-09-19] MEDS: ATORVASTATIN 20 MG TABLET PO SCH (21:00)
[2021-09-19] MEDS: metroNIDAZOLE 500 mg/NS 100 ML IV SCH (21:56)
[2021-09-19] MEDS: CEFEPIME 0.5 GM in D5W 50 ML IV SCH (22:10)
[2021-09-19] MEDS: AZITHROMYCIN 500 MG in NS 250 ML IV SCH (22:58)
[2021-09-20] VITALS (22 sets, daily range): BP systolic 115–173
[2021-09-20] MEDS: methylPREDNISolone SOD SUCC/PF 62.5 MG/ML VIAL IVP SCH ×5 (06:00→23:25)
[2021-09-20] MEDS: metroNIDAZOLE 500 mg/NS 100 ML IV SCH ×3 (06:00→21:54)
[2021-09-20] MEDS: LEVOTHYROXINE SODIUM 0.025 MG TABLET PO SCH (06:01)
[2021-09-20] MEDS: LevALBUTEROL HCL 1.25 MG/0.5 ML *CONC.* VIAL.NEB (XOPENEX CONC.) INH SCH ×3 (07:37→23:51)
[2021-09-20] MEDS: MEMANTINE HCL 5 MG TABLET PO SCH (09:00)
[2021-09-20] MEDS: ASPIRIN 81 MG TABLET(ECOTRIN) PO SCH (09:00)
[2021-09-20] MEDS: MULTIVITAMINS TAB 1 TABLET PO SCH (09:00)
[2021-09-20] MEDS: FINASTERIDE 5 MG TABLET (PROSCAR) PO SCH (09:00)
[2021-09-20] MEDS: SACUBITRIL/VALSARTAN 24 MG-26 MG 1 TABLET PO SCH (09:00)
[2021-09-20] MEDS: TAMSULOSIN HCL 0.4 MG CAP PO SCH ×2 (09:00→20:43)
[2021-09-20] MEDS: D5/0.45 NS 1,000 ML IV SCH ×2 (09:10→20:35)
[2021-09-20] MEDS: CEFEPIME 0.5 GM in D5W 50 ML IV SCH ×2 (09:26→20:39)
[2021-09-20 09:49] LABS: ALANINE AMINOTRANSFERASE 91 U/L (12-78); ALBUMIN 2.6 g/dL (3.4-4.8); ANION GAP 10 (5-15); ASPARTATE AMINOTRANSFERASE 54 U/L (10-37); CALCIUM 8.3 mg/dL (8.4-11.0); CHLORIDE 112 mmol/L (98-107); CREATININE 0.89 mg/dL (0.55-1.30); GLUCOSE 160 mg/dL (70-99); PHOSPHORUS 2.2 mg/dL (2.7-4.5); POTASSIUM 3.4 mmol/L (3.5-5.1); SODIUM SERUM 146 mmol/L (136-145); TOTAL BILIRUBIN 0.5 mg/dL (0.0-1.0); UREA NITROGEN, BLOOD 30 mg/dL (8-21)
[2021-09-20 10:20] LABS: BASOPHILS % (AUTO) 0.2 % (0.0-2.0); HEMATOCRIT 31.1 % (36-54); HEMOGLOBIN 10.7 g/dL (14.0-18.0); LYMPHOCYTES # (AUTO) 0.3 K/uL (1.0-5.5); LYMPHOCYTES % (AUTO) 4.3 % (20.5-51.5); MEAN CORPUSCULAR HEMOGLOBIN 33 pg (27-31); MEAN CORPUSCULAR HGB CONC 35 % (32-36); MEAN CORPUSCULAR VOLUME 96 fL (79.0-98.0); MONOCYTES # (AUTO) 0.2 K/uL (0.0-1.0); MONOCYTES % (AUTO) 3.5 % (1.7-9.3); NEUTROPHILS # (AUTO) 5.8 K/uL (1.8-7.7); PLATELET COUNT (AUTO) 78 K/uL (130-430); RED BLOOD CELL COUNT(AUTO) 3.24 MIL/uL (4.2-6.2); RED CELL DISTRIBUTION WIDTH 12.9 % (9.0-15.0); WHITE BLOOD COUNT (AUTO) 6.3 K/uL (4.8-10.8)
[2021-09-20 14:29] LABS: BILIRUBIN,URINE NEGATIVE (NEGATIVE); BLOOD, URINE 3+ (NEGATIVE); CLARITY/URINE TURBID (CLEAR); COLOR,URINE RED (YELLOW); GLUCOSE,URINE NEGATIVE (NEGATIVE); KETONES,URINE TRACE (NEGATIVE); NITRITE, URINE NEGATIVE (NEGATIVE); PROTEIN URINE 3+ (NEGATIVE); UROBILINOGEN,URINE 0.2 (0.2-1.0)
[2021-09-20 15:20] LABS: LEUKOCYTE ESTERASE ,URINE NEGATIVE (NEGATIVE)
[2021-09-20 15:23] LABS: BACTERIA,URINE FEW /HPF (None Seen); RBC,URINE >100 /HPF (0-3); WBC,URINE 0-3 /HPF (0-3)
[2021-09-20 15:24] LABS: MUCUS,URINE None Seen /LPF (None Seen)
--- NOTE | 2021-09-20 19:01 | NUR ---
a/o x 1, SR -ST on monitor IV on the Left forearm,R upper arm PICC line double lumen , site intact and patent, call light within reach, bed locked at lowest position, fall and safety precaution in place. will continue to monitor.
[2021-09-20 19:51] LABS: TRIGLYCERIDES 42 mg/dL (30-150)
[2021-09-20] MEDS: ATORVASTATIN 20 MG TABLET PO SCH (20:43)
[2021-09-20] MEDS: TPN PERIPHERAL IV SCH ×7 (20:48)
[2021-09-20] MEDS: POTASSIUM ACETATE IV SCH ×7 (20:48)
[2021-09-20] MEDS: [UNRECOGNIZED DRUG - OTHER] IV SCH ×7 (20:48)
[2021-09-20] MEDS: K PHOS IV SCH ×7 (20:48)
--- NOTE | 2021-09-20 20:48 | NUR ---
2047 started TPN @ 42 mls/hr
[2021-09-21] VITALS (24 sets, daily range): BP systolic 111–172
--- NOTE | 2021-09-21 03:47 | NUR ---
PARTIAL BED BATH GIVEN, CHANGED LINEN AND BEDSIDE CARE RENDERED.
[2021-09-21] MEDS: methylPREDNISolone SOD SUCC/PF 62.5 MG/ML VIAL IVP SCH ×3 (05:10→18:13)
[2021-09-21] MEDS: metroNIDAZOLE 500 mg/NS 100 ML IV SCH ×3 (05:11→22:00)
[2021-09-21] MEDS: LEVOTHYROXINE SODIUM 0.025 MG TABLET PO SCH (06:12)
--- NOTE | 2021-09-21 06:47 | NUR ---
DR VILLASEÑOR IS AT BEDSIDE ASSESSING THE PATIENT.
[2021-09-21 06:55] LABS: ALANINE AMINOTRANSFERASE 153 U/L (12-78); ANION GAP 9 (5-15); ASPARTATE AMINOTRANSFERASE 49 U/L (10-37); CALCIUM 8.6 mg/dL (8.4-11.0); CHLORIDE 110 mmol/L (98-107); CREATININE 0.89 mg/dL (0.55-1.30); GLUCOSE 212 mg/dL (70-99); PHOSPHORUS 2.8 mg/dL (2.7-4.5); POTASSIUM 3.7 mmol/L (3.5-5.1); SODIUM SERUM 147 mmol/L (136-145); TOTAL BILIRUBIN 0.5 mg/dL (0.0-1.0); UREA NITROGEN, BLOOD 34 mg/dL (8-21)
[2021-09-21] MEDS: LevALBUTEROL HCL 1.25 MG/0.5 ML *CONC.* VIAL.NEB (XOPENEX CONC.) INH SCH ×2 (07:37→16:14)
[2021-09-21] MEDS: CEFEPIME 0.5 GM in D5W 50 ML IV SCH ×2 (08:33→21:24)
[2021-09-21] MEDS: TAMSULOSIN HCL 0.4 MG CAP PO SCH ×2 (08:36→21:00)
[2021-09-21] MEDS: CITALOPRAM HYDROBROMIDE 20 MG TABLET PO SCH (08:36)
[2021-09-21] MEDS: SACUBITRIL/VALSARTAN 24 MG-26 MG 1 TABLET PO SCH (08:36)
[2021-09-21] MEDS: ASPIRIN 81 MG TABLET(ECOTRIN) PO SCH (08:36)
[2021-09-21] MEDS: MEMANTINE HCL 5 MG TABLET PO SCH (08:37)
[2021-09-21] MEDS: MULTIVITAMINS TAB 1 TABLET PO SCH (08:37)
[2021-09-21] MEDS: FINASTERIDE 5 MG TABLET (PROSCAR) PO SCH (08:37)
--- NOTE | 2021-09-21 18:00 | NUR ---
ATTEMPTED TO FLUSH MARTINEZ CATHETER, UNSUCCESSFUL. PT LEAKING BLOOD TINGED URINE AROUND CATHETER. CATHETER D/C INTACT, LG AMOUNT SEDIMENT CLOT NOTED ON TIP OF CATHETER, NEW CATHETER PLACED MAINTAINING STERILE PROCEDURE. LIGHT RED/YELLOW URINE OUT
[2021-09-21] MEDS: ATORVASTATIN 20 MG TABLET PO SCH (21:00)
[2021-09-21] MEDS: [UNRECOGNIZED DRUG - OTHER] IV SCH ×7 (21:23)
[2021-09-21] MEDS: K PHOS IV SCH ×7 (21:23)
[2021-09-21] MEDS: POTASSIUM ACETATE IV SCH ×7 (21:23)
[2021-09-21] MEDS: TPN PERIPHERAL IV SCH ×7 (21:23)
[2021-09-21] MEDS: D5/0.45 NS 1,000 ML IV SCH (21:24)
[2021-09-22] VITALS (16 sets, daily range): BP systolic 137–168
[2021-09-22] MEDS: methylPREDNISolone SOD SUCC/PF 62.5 MG/ML VIAL IVP SCH ×5 (00:49→23:22)
[2021-09-22] MEDS: metroNIDAZOLE 500 mg/NS 100 ML IV SCH ×3 (05:16→21:52)
[2021-09-22] MEDS: LEVOTHYROXINE SODIUM 0.025 MG TABLET PO SCH (06:49)
[2021-09-22 07:24] LABS: ALANINE AMINOTRANSFERASE 111 U/L (12-78); ALBUMIN 3.3 g/dL (3.4-4.8); ASPARTATE AMINOTRANSFERASE 19 U/L (10-37); CALCIUM 8.9 mg/dL (8.4-11.0); CREATININE 0.91 mg/dL (0.55-1.30); GLUCOSE 200 mg/dL (70-99); PHOSPHORUS 2.9 mg/dL (2.7-4.5); TOTAL BILIRUBIN 0.7 mg/dL (0.0-1.0); UREA NITROGEN, BLOOD 38 mg/dL (8-21)
--- NOTE | 2021-09-22 08:00 | NUR ---
Patient open eyes, nonverbal, no s/s of distress, on 2 liters nasal cannula saturation good,oral suction done, am care provided. turn and reposition with pillow support. keep hob elevated to prevent aspiration. picc line at right upper arm. arm circumference 29 with good blood return.no swelling or infiltration noted.
[2021-09-22 08:03] LABS: ANION GAP 12 (5-15); CHLORIDE 109 mmol/L (98-107); POTASSIUM 4.1 mmol/L (3.5-5.1); SODIUM SERUM 144 mmol/L (136-145)
[2021-09-22] MEDS: CEFEPIME 0.5 GM in D5W 50 ML IV SCH ×2 (08:58→21:00)
[2021-09-22] MEDS: ASPIRIN 81 MG TABLET(ECOTRIN) PO SCH (09:00)
[2021-09-22] MEDS: MEMANTINE HCL 5 MG TABLET PO SCH (09:00)
[2021-09-22] MEDS: MULTIVITAMINS TAB 1 TABLET PO SCH (09:00)
[2021-09-22] MEDS: SACUBITRIL/VALSARTAN 24 MG-26 MG 1 TABLET PO SCH (09:00)
[2021-09-22] MEDS: FINASTERIDE 5 MG TABLET (PROSCAR) PO SCH (09:00)
[2021-09-22] MEDS: TAMSULOSIN HCL 0.4 MG CAP PO SCH ×2 (09:00→21:00)
--- NOTE | 2021-09-22 14:00 | NUR ---
MD radford downgrade patient to telemetry status.
[2021-09-22] MEDS: LevALBUTEROL HCL 1.25 MG/0.5 ML *CONC.* VIAL.NEB (XOPENEX CONC.) INH SCH ×2 (15:00→17:33)
--- NOTE | 2021-09-22 15:00 | NUR ---
COURTESY CALL, INFORMED FAMILY TRANSFERRED TO TELEMETRY UNIT TO ROOM 107B. S/W KEVIN ( DAUGHTER).
--- NOTE | 2021-09-22 15:00 | NUR ---
PATIENT TRANSFERRED FROM ICU TO TELE, RECEIVED REPORT AT BEDSIDE FROM [facility], TPN RUNNING INTO PICC LINE EMANUEL, 2L NASAL CANULA, MARTINEZ CATHETER, NSR ON TELE, NON VERBAL,REPORT FROM [facility], BED IN LOWEST LOCKED POSITION , CALL LIGHT WITHIN REACH, WILL CONTINUE TO MONITOR.
--- NOTE | 2021-09-22 17:38 | NUR ---
1200 SUCTION PT ORALLY. LARGE THICK YELLOW SECRETIONS. HR 101 RR 12 SAT 98%. Addendum: 09/22/21 at 1739 by Fabby Bray RT Amended: Links added.
--- NOTE | 2021-09-22 19:15 | NUR ---
RECEIVED BEDSIDE REPORT. PT IN BED RESTING WITH EYES CLOSED. PT NPO AT THAT THIS TIME. PT DOESN'T APPEAR TO BE IN PAIN AT THIS TIME. CALL LIGHT WITHIN REACH. BED RAILS UP X2. BED ALARM ON. WILL CONTINUE TO MONITOR.
--- NOTE | 2021-09-22 19:26 | NUR ---
PATIENT IN BED, NO S/S OF DISTRESS, NO MAJOR CHANGES SINCE TRANSFER TO UNIT, TOLERATING CARE, ENDORSED CONTINUATION OF CARE TO TALENT ASSISTANT.
[2021-09-22] MEDS: ATORVASTATIN 20 MG TABLET PO SCH (21:00)
[2021-09-22] MEDS: D5/0.45 NS 1,000 ML IV SCH (21:51)
[2021-09-22] MEDS: [UNRECOGNIZED DRUG - OTHER] IV SCH ×9 (21:54)
[2021-09-22] MEDS: POTASSIUM ACETATE IV SCH ×9 (21:54)
[2021-09-22] MEDS: TPN PERIPHERAL IV SCH ×9 (21:54)
[2021-09-22] MEDS: K PHOS IV SCH ×9 (21:54)
[2021-09-22] MEDS ORDERED: CEFEPIME 1 GM/VIAL (MAXIPIME) ONE (22:51)
--- NOTE | 2021-09-23 | NUR ---
PT IN BED WITH EYES CLOSED. PT DOESN'T APPEAR TO BE IN PAIN. RR EVEN AND UNLABORED ON 2L NC. MARTINEZ CATH DRAINING TO GRAVITY. BED RAILS UPX2. CALL LIGHT WITHIN REACH. BED LOCKED IN LOWEST POSITION. WILL CONTINUE TO MONITOR.
[2021-09-23 01:09] VITALS: BP_SYST 171
[2021-09-23] MEDS: hydrALAZINE HCL 20 MG/ML VIAL IVP PRN (01:19)
[2021-09-23 01:26] VITALS: BP_SYST 148
[2021-09-23] MEDS: methylPREDNISolone SOD SUCC/PF 62.5 MG/ML VIAL IVP SCH ×3 (06:11→18:50)
[2021-09-23] MEDS: metroNIDAZOLE 500 mg/NS 100 ML IV SCH ×2 (06:12→14:02)
[2021-09-23] MEDS: LEVOTHYROXINE SODIUM 0.025 MG TABLET PO SCH (06:12)
[2021-09-23] MEDS ORDERED: MEPERIDINE 100 MG INJ. 100 MG/ML VIAL ONE (06:23)
[2021-09-23] MEDS ORDERED: SIMETHICONE 40 MG/0.6 ML ML ONE (06:23)
[2021-09-23] MEDS ORDERED: MIDAZOLAM HCL 5 MG/5 ML VIAL ONE (06:24)
[2021-09-23 06:38] LABS: BASOPHILS % (AUTO) 0.2 % (0.0-2.0); HEMATOCRIT 37.2 % (36-54); HEMOGLOBIN 12.6 g/dL (14.0-18.0); LYMPHOCYTES # (AUTO) 0.3 K/uL (1.0-5.5); LYMPHOCYTES % (AUTO) 7.8 % (20.5-51.5); MEAN CORPUSCULAR HEMOGLOBIN 33 pg (27-31); MEAN CORPUSCULAR HGB CONC 34 % (32-36); MEAN CORPUSCULAR VOLUME 97 fL (79.0-98.0); MONOCYTES # (AUTO) 0.2 K/uL (0.0-1.0); MONOCYTES % (AUTO) 5.4 % (1.7-9.3); NEUTROPHILS # (AUTO) 3.3 K/uL (1.8-7.7); NEUTROPHILS % (AUTO) 86.6 % (40.0-70.0); PLATELET COUNT (AUTO) 86 K/uL (130-430); RED BLOOD CELL COUNT(AUTO) 3.86 MIL/uL (4.2-6.2); RED CELL DISTRIBUTION WIDTH 13.2 % (9.0-15.0); WHITE BLOOD COUNT (AUTO) 3.8 K/uL (4.8-10.8)
[2021-09-23 07:05] LABS: ALANINE AMINOTRANSFERASE 108 U/L (12-78); ALBUMIN 3.2 g/dL (3.4-4.8); ANION GAP 10 (5-15); CHLORIDE 109 mmol/L (98-107); CREATININE 0.79 mg/dL (0.55-1.30); GLUCOSE 209 mg/dL (70-99); PHOSPHORUS 3.7 mg/dL (2.7-4.5); POTASSIUM 4.4 mmol/L (3.5-5.1); SODIUM SERUM 143 mmol/L (136-145); TOTAL BILIRUBIN 0.6 mg/dL (0.0-1.0); UREA NITROGEN, BLOOD 40 mg/dL (8-21)
--- NOTE | 2021-09-23 07:11 | NUR ---
CLOSING NOTES PATIENT RESTING, NO SIGNS OF DISTRESS NOTED. HOB ELEVATED, CALL LIGHT WITHIN REACH, BED ALARM ON, BED AT LOWEST POSITION, BED LOCKED. FALL, RESPIRATORY, ASPIRATION, ISOLATION AND SAFETY PRECAUTIONS IN PLACE. ALL NEEDS MET THROUGHOUT SHIFT. WILL ENDORSE CARE TO ONCOMING SHIFT.
[2021-09-23] MEDS: LevALBUTEROL HCL 1.25 MG/0.5 ML *CONC.* VIAL.NEB (XOPENEX CONC.) INH SCH ×3 (07:16→22:54)
--- NOTE | 2021-09-23 07:23 | NUR ---
Endorsed care to day rn.
[2021-09-23 07:50] VITALS: BP_SYST 169
[2021-09-23] MEDS: MEMANTINE HCL 5 MG TABLET PO SCH (09:00)
[2021-09-23] MEDS: ASPIRIN 81 MG TABLET(ECOTRIN) PO SCH (09:00)
[2021-09-23] MEDS: SACUBITRIL/VALSARTAN 24 MG-26 MG 1 TABLET PO SCH (09:00)
[2021-09-23] MEDS: MULTIVITAMINS TAB 1 TABLET PO SCH (09:00)
[2021-09-23] MEDS: CEFEPIME 0.5 GM in D5W 50 ML IV SCH ×2 (09:00→22:40)
[2021-09-23] MEDS: FINASTERIDE 5 MG TABLET (PROSCAR) PO SCH (09:00)
[2021-09-23] MEDS: CITALOPRAM HYDROBROMIDE 20 MG TABLET PO SCH (09:00)
[2021-09-23] MEDS: TAMSULOSIN HCL 0.4 MG CAP PO SCH ×2 (09:00→21:00)
[2021-09-23 09:04] LABS: ASPARTATE AMINOTRANSFERASE 39 U/L (10-37)
[2021-09-23 09:16] LABS: INR 1.3 (0.80-1.20); PROTHROMBIN TIME 13.5 SECS (9.5-12.5)
[2021-09-23 11:25] VITALS: BP_SYST 149
--- NOTE | 2021-09-23 15:10 | NUR ---
WOUND EVALUATION: Late note for 09/23/21 at 1510 secondary to patient care. Wound Consult received from Dr. Moreira. Thank you, Dr. Moreira, for the consult. Patient received in a Williams Bed with an Atmos-Air 9000 mattress, eyes open, nonverbal, nonresponsive to verbal commands. Patient is unable to turn in bed independently. Dionicio Score is a 14. Past Medical History: Hypertension, Hypothyroidism, Benign Prostatic Hypertrophy, Dementia, Congestive Heart Failure. Recent Labs: WBC 3.8, RBC 3.86, hemoglobin 12.6, hematocrit 37.2, chloride 109, BUN 40, creatinine 0.79, glucose 209, POC glucose 237, magnesium 2.3, AST 39, ALT 108, albumin 3.2, PT 13.5, INR 1.3, PTT 25.2, fibrinogen 682. Microbiology: Blood culture results x2 -. MRSA screen results negative. Second set of blood culture results (x2) negative. Intrinsic factors that delay wound healing: Congestive Heart Failure, Hyperglycemia, Hypoalbuminemia. Extrinsic factors that delay wound healing: Immobility. Site Assessment: 1. Left Sacral area: Lesion of unknown etiology. Site has 100% light yellow-white tissue. No odor, no drainage. No tunneling or undermining. Site measures 1.5 cm x 1.3 cm. Recommend: Cleanse lesion with normal saline if soiled. Place alginate dressing over lesion, then foam dressing. Apply moisture barrier cream to surrounding tissue around dressing. Perform site care daily, and as needed for dressing soiling or dislodgement. Also recommend: Reposition patient fbxk-cw-yvup only every 2 hours with pillow support and off-load pressure areas with pillows for pressure re-distribution. Offload, elevate and float bilateral heels with one pillow lengthwise under each extremity at all times. Perform skin care and monitor skin integrity Q shift. Use moisture barrier cream on buttocks and other moisture susceptible areas QID and as needed for soiling. Place patient on a low air-loss mattress.
[2021-09-23 15:36] VITALS: BP_SYST 152
--- NOTE | 2021-09-23 15:40 | NUR ---
Nutrition F/U: RD reviewed pt's current EMR record including diet Hx, physician notes, nursing notes, pertinent labs/meds/procedures, care trends, and care activity. Admitting Diagnosis : Bilat pneumonia Medical History Comment: HTN, CHF, hypothyroidismm, BPH, dementia per physician notes SARS-CoV-2 Ag (Rapid) Negative 09/15 & (PCR) Pending 09/15 Subjective Information : Per EMR review, pt is non-verbal, and is schedule for PEG placement today. BM x 1 on 09/20. If pt is hemodynamically stable and MD agree, initiate TF formula of Jevity 1.2 at goal of 65ml/hr and TPN was tapered off. Current TF rate ordered provides 1872kcal, 87g protein, 1659ml total water, and is not meeting current estimated needs. Due to elevated BG, pt may warrant from low carbohydrate TF formula. Dionicio scale score of 14, +1 non-pitting edema & skin w/ healing wound mid sacrum. RD rounded Pt at bedside, no TF formula is initiated. RD called primary RN and discuss plan, RN aware and will call MD for order. Current Diet Order/Nutrition Support: Jevity 1.2 at 10ml/hr increase rate by 10ml/hr as tolerated at goal 65, FWF 100ml/Q6hrs. Patient/Significant Other: Unable To Verbalize Education Provided: Not Indicated Pertinent Medications: piperacillin/tazobactam IV, solu-medrol, Lipitor, Flomax, MVI, Synthroid, catapres Pertinent Labs: (09/23) WBC 3.8L, BH, AST: 39H, ALT: 108H Height (Feet): 5 feet 6.00 inches Weight (Pounds): 145 pounds/ 65.468448 kilograms Body Mass Index: 40 kg/m2 %IBW: 102 Moriarty/Adjusted Body Weight IBW: 142#/65 kg Weight Status Appropriate Estimated Energy Expenditure (kcals/day) 6857-7109 kcal/day (30-35 kcal/kg CBW d/t acute state) Estimated Protein Required (g/day) 99-132 gm/day (1.5-2 gm/kg CBW d/t acute state) Estimated Fluid Required (l/day) Per physician d/t CHF Problem/Etiology/Signs/Symptoms Increased nutritional needs related to metabolic demands as evidenced by estimated nutritional requirements for acute state. (* on going) Suspected chew/swallow difficulty related to unknown etiology as evidenced by PEG placement today. Expected Outcomes/Goals - Monitor TF tolerance & goal of pt meeting at least 75% of estimated nutritional needs, labs trending WNL, normal GI function, and skin integrity/wt maintenance Dietitian Recommendations * Recommend Glucerna 1.2 at 70ml/hr, FWF Per physician d/t CHF - Provides: 2016kcal, 101g protein, 1352ml free water. - Meeting 102% of estimate caloric needs, and 102% of estimate protein needs at lower ends. Follow Up High Risk: F/U in 2-3days
--- NOTE | 2021-09-23 15:50 | NUR ---
Dietitian Recommendations * Recommend Glucerna 1.2 at 70ml/hr, FWF Per physician d/t CHF - Provides: 2016kcal, 101g protein, 1352ml free water. - Meeting 102% of estimate caloric needs, and 102% of estimate protein needs at lower ends. Please refer to nutrition assessment for details. CN,RD
--- NOTE | 2021-09-23 19:15 | NUR ---
OPENING NOTES PATIENT RESTING, NO SIGNS OF DISTRESS NOTED. HOB ELEVATED, CALL LIGHT WITHIN REACH, BED ALARM ON, BED AT LOWEST POSITION, BED LOCKED. FALL, RESPIRATORY, ASPIRATION, ISOLATION AND SAFETY PRECAUTIONS IN PLACE. DISCUSSED PLAN OF CARE WITH PATIENT. ALL NEEDS MET THROUGHOUT SHIFT. WILL ENDORSE CARE TO ONCOMING SHIFT.
[2021-09-23 20:00] VITALS: BP_SYST 146
[2021-09-23] MEDS: K PHOS IV SCH ×17 (20:51→22:43)
[2021-09-23] MEDS: POTASSIUM ACETATE IV SCH ×9 (20:51)
[2021-09-23] MEDS: TPN PERIPHERAL IV SCH ×17 (20:51→22:43)
[2021-09-23] MEDS: [UNRECOGNIZED DRUG - OTHER] IV SCH ×9 (20:51)
[2021-09-23] MEDS: ATORVASTATIN 20 MG TABLET PO SCH (21:00)
[2021-09-23] MEDS: D5/0.45 NS 1,000 ML IV SCH (22:40)
[2021-09-23] MEDS: [UNRECOGNIZED DRUG - OTHER] IV SCH ×8 (22:43)
[2021-09-23] MEDS: CALCIUM GLUCONATE IV SCH ×8 (22:43)
[2021-09-24 00:02] VITALS: BP_SYST 140
[2021-09-24] MEDS: methylPREDNISolone SOD SUCC/PF 62.5 MG/ML VIAL IVP SCH ×3 (00:36→20:58)
[2021-09-24] MEDS: metroNIDAZOLE 500 mg/NS 100 ML IV SCH ×4 (00:40→22:16)
[2021-09-24] MEDS: LEVOTHYROXINE SODIUM 0.025 MG TABLET PO SCH (07:00)
[2021-09-24 07:03] LABS: BASOPHILS % (AUTO) 0.2 % (0.0-2.0); HEMATOCRIT 35.7 % (36-54); LYMPHOCYTES # (AUTO) 0.2 K/uL (1.0-5.5); LYMPHOCYTES % (AUTO) 3.4 % (20.5-51.5); MEAN CORPUSCULAR HEMOGLOBIN 33 pg (27-31); MEAN CORPUSCULAR HGB CONC 34 % (32-36); MEAN CORPUSCULAR VOLUME 97 fL (79.0-98.0); MONOCYTES # (AUTO) 0.2 K/uL (0.0-1.0); NEUTROPHILS # (AUTO) 4.1 K/uL (1.8-7.7); NEUTROPHILS % (AUTO) 92.4 % (40.0-70.0); PLATELET COUNT (AUTO) 81 K/uL (130-430); RED BLOOD CELL COUNT(AUTO) 3.66 MIL/uL (4.2-6.2); RED CELL DISTRIBUTION WIDTH 13.1 % (9.0-15.0); WHITE BLOOD COUNT (AUTO) 4.5 K/uL (4.8-10.8)
[2021-09-24] MEDS: LevALBUTEROL HCL 1.25 MG/0.5 ML *CONC.* VIAL.NEB (XOPENEX CONC.) INH SCH ×3 (07:40→22:44)
[2021-09-24 07:50] LABS: ANION GAP 8 (5-15); CALCIUM 8.3 mg/dL (8.4-11.0); CHLORIDE 108 mmol/L (98-107); CREATININE 0.76 mg/dL (0.55-1.30); GLUCOSE 247 mg/dL (70-99); PHOSPHORUS 3.7 mg/dL (2.7-4.5); POTASSIUM 3.9 mmol/L (3.5-5.1); SODIUM SERUM 142 mmol/L (136-145); UREA NITROGEN, BLOOD 37 mg/dL (8-21)
[2021-09-24] MEDS: MEMANTINE HCL 5 MG TABLET PO SCH (09:00)
[2021-09-24] MEDS: MULTIVITAMINS TAB 1 TABLET PO SCH (09:00)
[2021-09-24] MEDS: FINASTERIDE 5 MG TABLET (PROSCAR) PO SCH (09:00)
[2021-09-24] MEDS: CEFEPIME 0.5 GM in D5W 50 ML IV SCH ×2 (09:00→22:15)
[2021-09-24] MEDS: ASPIRIN 81 MG TABLET(ECOTRIN) PO SCH (09:00)
[2021-09-24] MEDS: TAMSULOSIN HCL 0.4 MG CAP PO SCH ×2 (09:00→20:59)
[2021-09-24 12:16] VITALS: BP_SYST 152
--- NOTE | 2021-09-24 12:16 | NUR ---
Discharge Planning: DCP faxed pt referral to [facility] ([facility] [phone] P [phone]) DCP to follow up. Disposition #03
[2021-09-24 16:32] VITALS: BP_SYST 145
[2021-09-24] MEDS: TPN PERIPHERAL IV SCH ×8 (20:12)
[2021-09-24] MEDS: K PHOS IV SCH ×8 (20:12)
[2021-09-24] MEDS: CALCIUM GLUCONATE IV SCH ×8 (20:12)
[2021-09-24] MEDS: [UNRECOGNIZED DRUG - OTHER] IV SCH ×8 (20:12)
[2021-09-24] MEDS: ATORVASTATIN 20 MG TABLET PO SCH (20:59)
[2021-09-24 21:00] VITALS: BP_SYST 142
[2021-09-24] MEDS ORDERED: K PHOS IV SCH ×9 (21:00)
[2021-09-24] MEDS ORDERED: TPN PERIPHERAL IV SCH ×9 (21:00)
[2021-09-24] MEDS ORDERED: CALCIUM GLUCONATE IV SCH ×9 (21:00)
[2021-09-24] MEDS ORDERED: [UNRECOGNIZED DRUG - OTHER] IV SCH ×9 (21:00)
[2021-09-24] MEDS: D5/0.45 NS 1,000 ML IV SCH (21:00)
[2021-09-24] MEDS ORDERED: FAT EMULSIONS 250 ML IV SCH (21:00)
[2021-09-25 00:30] VITALS: BP_SYST 148
[2021-09-25] MEDS: metroNIDAZOLE 500 mg/NS 100 ML IV SCH ×3 (05:01→22:20)
[2021-09-25] MEDS: LEVOTHYROXINE SODIUM 0.025 MG TABLET PO SCH (06:08)
[2021-09-25] MEDS: LevALBUTEROL HCL 1.25 MG/0.5 ML *CONC.* VIAL.NEB (XOPENEX CONC.) INH SCH ×2 (07:40→15:28)
--- NOTE | 2021-09-25 07:45 | NUR ---
Patient resting quietly in bed with RT Opal at bedside; breathing treatment in progress. Patient stable at this time.
[2021-09-25 08:10] VITALS: BP_SYST 168
[2021-09-25 08:32] LABS: SODIUM SERUM 140 mmol/L (136-145)
[2021-09-25 08:33] LABS: ALANINE AMINOTRANSFERASE 169 U/L (12-78); ALBUMIN 2.9 g/dL (3.4-4.8); ANION GAP 9 (5-15); ASPARTATE AMINOTRANSFERASE 82 U/L (10-37); CHLORIDE 107 mmol/L (98-107); CREATININE 0.65 mg/dL (0.55-1.30); GLUCOSE 220 mg/dL (70-99); PHOSPHORUS 3.6 mg/dL (2.7-4.5); POTASSIUM 4.2 mmol/L (3.5-5.1); TOTAL BILIRUBIN 0.4 mg/dL (0.0-1.0); UREA NITROGEN, BLOOD 40 mg/dL (8-21)
--- NOTE | 2021-09-25 08:38 | NUR ---
Patient stable with Dr. Gee at bedside.
[2021-09-25] MEDS: TAMSULOSIN HCL 0.4 MG CAP PO SCH ×2 (09:08→21:24)
[2021-09-25] MEDS: CITALOPRAM HYDROBROMIDE 20 MG TABLET PO SCH (09:08)
[2021-09-25] MEDS: ASPIRIN 81 MG TABLET(ECOTRIN) PO SCH (09:08)
[2021-09-25] MEDS: MULTIVITAMINS TAB 1 TABLET PO SCH (09:08)
[2021-09-25] MEDS: SACUBITRIL/VALSARTAN 24 MG-26 MG 1 TABLET PO SCH (09:08)
[2021-09-25] MEDS: methylPREDNISolone SOD SUCC/PF 62.5 MG/ML VIAL IVP SCH ×2 (09:09→21:24)
[2021-09-25] MEDS: FINASTERIDE 5 MG TABLET (PROSCAR) PO SCH (09:09)
[2021-09-25] MEDS: MEMANTINE HCL 5 MG TABLET PO SCH (09:09)
[2021-09-25] MEDS: CEFEPIME 0.5 GM in D5W 50 ML IV SCH ×2 (09:10→21:24)
--- NOTE | 2021-09-25 09:10 | NUR ---
Scheduled IV abx and IVP medications given per order. Scheduled po medications give via G-tube. Patient stable at this time with no respiratory distress noted.
[2021-09-25] MEDS: hydrALAZINE HCL 20 MG/ML VIAL IVP PRN (09:23)
--- NOTE | 2021-09-25 09:24 | NUR ---
PRN medication given for elevated BP: 168/95. Patient stable.
[2021-09-25] MEDS ORDERED: BISACODYL 10 MG/SUPPOSITORY RC ONE (11:15)
--- NOTE | 2021-09-25 11:20 | NUR ---
Abdominal XR in progress. Patient stable at this time.
[2021-09-25 12:16] VITALS: BP_SYST 148
[2021-09-25 13:38] LABS: TRIGLYCERIDES 169 mg/dL (30-150)
--- NOTE | 2021-09-25 14:10 | NUR ---
Scheduled IV abx given per order. Checked blood sugar: 230 mg/dl - no coverage ordered. Patient stable at this time with no distress noted.
--- NOTE | 2021-09-25 15:30 | NUR ---
Patient receiving breathing treatment with Opal, RT at bedside. Patient stable.
[2021-09-25 16:15] VITALS: BP_SYST 133
--- NOTE | 2021-09-25 16:30 | NUR ---
Patient stable with , daughter, and Dr. Torres at bedside. Patient stable.
--- NOTE | 2021-09-25 16:50 | NUR ---
Patient stable with , daughter, and Dr. Moreira at bedside. Patient stable at this time.
--- NOTE | 2021-09-25 17:17 | NUR ---
CONSULTATION PAGED REASON FOR CONSULTATION:POSSIBLE PARKINSON DISEASE WAS CONSULT CALED?Y PERSON WHO WAS NOTIFIED:TEXT MESSAGED TIANA JENSEN CONSULTING PHYSICIAN:TIANA JENSEN FIRE CAPTAIN SPECIALTY:NEURO FIRE CAPTAIN PHONE NUMBER:[phone] REQUESTING PHYSICIAN:ALLISON LEAL
--- NOTE | 2021-09-25 17:23 | NUR ---
Checked blood sugar: 223 mg/dl - patient stable with and daughter at bedside.
--- NOTE | 2021-09-25 18:05 | NUR ---
Patient resting quietly in bed with eyes closed; and daughter at bedside. Patient stable throughout shift.
--- NOTE | 2021-09-25 18:28 | NUR ---
US venous doppler of BUE to r/o DVT in progress at this time. Patient stable.
--- NOTE | 2021-09-25 18:55 | NUR ---
Paged Dr. Moreira to relay result of US venous doppler: (+) DVT in right brachial and left axillary. Left message; awaiting call back.
[2021-09-25 19:28] VITALS: BP_SYST 128
--- NOTE | 2021-09-25 19:30 | NUR ---
initial notes: pt is sleeping, no sign of pain, not distress, no sob. pt vital sign with normal limits. pt right arm is swollen. according to report pt has dvt on left axilla and right brachial. dr. radford is page. safety precaution in place, side rails up. low bed position. will monitor.
--- NOTE | 2021-09-25 19:46 | NUR ---
dr. radford call back- report to md bilateral dvt to left axillaxy and right brachial. md order eliquis 5mg bid via gt and dc picc line, tpn and lipids. increase gtfeeding to 40cc/hr.
--- NOTE | 2021-09-25 19:51 | NUR ---
HIGH ALERT NOTE: Called Dr. radford back at [phone] identified within the medical roster to verify physician authenticity.
--- NOTE | 2021-09-25 20:10 | NUR ---
discontinue right upper amr picc line per md order, 37cm long catheter taken out.
[2021-09-25] MEDS ORDERED: K PHOS IV SCH ×9 (21:00)
[2021-09-25] MEDS ORDERED: TPN PERIPHERAL IV SCH ×9 (21:00)
[2021-09-25] MEDS ORDERED: [UNRECOGNIZED DRUG - OTHER] IV SCH ×9 (21:00)
[2021-09-25] MEDS ORDERED: CALCIUM GLUCONATE IV SCH ×9 (21:00)
[2021-09-25] MEDS: D5/0.45 NS 1,000 ML IV SCH (21:18)
[2021-09-25] MEDS: ATORVASTATIN 20 MG TABLET PO SCH (21:24)
[2021-09-25] MEDS: APIXABAN 2.5 MG TABLET PO SCH (21:25)
--- NOTE | 2021-09-25 23:18 | NUR ---
clean pt and reposition, pt tolerate well.
[2021-09-26] VITALS: BP_SYST 137
[2021-09-26] MEDS: LevALBUTEROL HCL 1.25 MG/0.5 ML *CONC.* VIAL.NEB (XOPENEX CONC.) INH SCH ×4 (00:16→23:21)
--- NOTE | 2021-09-26 00:17 | NUR ---
pt is sleeping, no sign of pain and distress, stable vital sign. needs attended.
[2021-09-26] MEDS: metroNIDAZOLE 500 mg/NS 100 ML IV SCH ×3 (05:14→21:37)
[2021-09-26] MEDS: LEVOTHYROXINE SODIUM 0.025 MG TABLET PO SCH (06:06)
--- NOTE | 2021-09-26 06:09 | NUR ---
closing: pt is still sleeping, no sign of pain, not distress, stable. needs attended the whole shift, turn q2hr,kept clean and dry. will continue to monitor until sbar reporting given to am rn.
--- NOTE | 2021-09-26 07:40 | NUR ---
OPENING NOTE Received report from night nurse. Patient is alert and oriented x0, nonverbal. On 2 L nasal cannula and tolerating well with no signs of shortness of breath noted. IV is patent, infusing fluids as ordered. G tube in place, administering feedings at 40 ml/hr. Bed locked and in lowest position. Call light within reach. Bed alarm on. Aspiration and fall precautions in place. Will continue to monitor.
[2021-09-26 08:00] VITALS: BP_SYST 141
[2021-09-26] MEDS: APIXABAN 2.5 MG TABLET PO SCH ×2 (08:38→20:36)
[2021-09-26] MEDS: TAMSULOSIN HCL 0.4 MG CAP PO SCH ×2 (08:38→20:31)
[2021-09-26] MEDS: ASPIRIN 81 MG TABLET(ECOTRIN) PO SCH (08:38)
[2021-09-26] MEDS: MEMANTINE HCL 5 MG TABLET PO SCH (08:39)
[2021-09-26] MEDS: BISACODYL 10 MG/SUPPOSITORY RC SCH (08:39)
[2021-09-26] MEDS: MULTIVITAMINS TAB 1 TABLET PO SCH (08:39)
[2021-09-26] MEDS: FINASTERIDE 5 MG TABLET (PROSCAR) PO SCH (08:39)
[2021-09-26] MEDS: SACUBITRIL/VALSARTAN 24 MG-26 MG 1 TABLET PO SCH (08:40)
[2021-09-26] MEDS: methylPREDNISolone SOD SUCC/PF 62.5 MG/ML VIAL IVP SCH ×2 (08:41→20:32)
[2021-09-26 09:13] LABS: ALANINE AMINOTRANSFERASE 238 U/L (12-78); ALBUMIN 2.7 g/dL (3.4-4.8); ANION GAP 7 (5-15); ASPARTATE AMINOTRANSFERASE 101 U/L (10-37); CALCIUM 8.7 mg/dL (8.4-11.0); CHLORIDE 107 mmol/L (98-107); CREATININE 0.76 mg/dL (0.55-1.30); GLUCOSE 196 mg/dL (70-99); PHOSPHORUS 3.6 mg/dL (2.7-4.5); POTASSIUM 4.2 mmol/L (3.5-5.1); SODIUM SERUM 141 mmol/L (136-145); TOTAL BILIRUBIN 0.6 mg/dL (0.0-1.0); UREA NITROGEN, BLOOD 39 mg/dL (8-21)
[2021-09-26] MEDS: CEFEPIME 0.5 GM in D5W 50 ML IV SCH ×2 (09:46→20:33)
--- NOTE | 2021-09-26 10:30 | NUR ---
Dr. Gee vega MD to see patient. Informed him of elevated blood sugar but no coverage ordered. Order insulin per sliding scale. Noted and will carry out.
[2021-09-26] MEDS: INSULIN REGULAR, HUMAN 100 UNITS/ML, 10 ML VIAL (humuLIN R) SUBCUT PRN ×2 (11:16→16:56)
[2021-09-26 12:00] VITALS: BP_SYST 147
--- NOTE | 2021-09-26 13:44 | NUR ---
RN NOTE Patient had large loose BM. Cleaned and repositioned. Family at bedside. Tolerating G tube feedings well. Will continue to monitor.
--- NOTE | 2021-09-26 14:20 | NUR ---
CM: F/U with DAVID Lal at [facility] for bed assignment # [phone], He does not know about the admission. I asked him to call his x ray control equipment repairer administration/admission dept to verify taking the pt back. The patient is a resident of [facility].
[2021-09-26] MEDS ORDERED: MINERAL OIL 133 ML ENEMA RC ONE (15:45)
--- NOTE | 2021-09-26 16:11 | NUR ---
Dr. Frazier rounds to see patient. Patient has fecal impaction on KUB. New orders received. Will carry out.
[2021-09-26 16:50] VITALS: BP_SYST 141
--- NOTE | 2021-09-26 18:30 | NUR ---
CLOSING NOTE Patient is resting in bed, family at bedside. On 2 L nasal cannula and tolerating well with no signs of shortness of breath noted. IV is patent, infusing fluids as ordered. G tube in place, administering feedings at 40 ml/hr. Tolerating well. Bed locked and in lowest position. Call light within reach. Aspiration precautions remain in place. All needs met throughout shift. Will endorse to night nurse.
--- NOTE | 2021-09-26 19:20 | NUR ---
initial notes: pt is sleeping, no sign of pain, not distress, no sob. pt vital sign with normal limits. ivf infusing well. gtube feeding flowing well. safety precaution in place, side rails up. low bed position. will monitor.
[2021-09-26 20:07] VITALS: BP_SYST 135
[2021-09-26] MEDS: ATORVASTATIN 20 MG TABLET PO SCH (20:31)
[2021-09-26] MEDS: POLYETHYLENE GLYCOL 3350, 17 GM/ POWD.PACK PO SCH (20:31)
[2021-09-26] MEDS: D5/0.45 NS 1,000 ML IV SCH (20:37)
--- NOTE | 2021-09-26 21:30 | NUR ---
pt is given sponge, gown and linen change, pt tolerate well. needs attended.
[2021-09-27] VITALS: BP_SYST 128
[2021-09-27] MEDS: INSULIN REGULAR, HUMAN 100 UNITS/ML, 10 ML VIAL (humuLIN R) SUBCUT PRN ×4 (00:09→19:12)
--- NOTE | 2021-09-27 00:39 | NUR ---
pt is sleeping, o pain, not sob, stable vital sign, needs attended.
[2021-09-27] MEDS: metroNIDAZOLE 500 mg/NS 100 ML IV SCH ×3 (05:19→21:32)
[2021-09-27] MEDS: LEVOTHYROXINE SODIUM 0.025 MG TABLET PO SCH (06:02)
--- NOTE | 2021-09-27 06:21 | NUR ---
CLOSING: pt is awake, alert. no pain. ambulate to hallway with steady gait. ivf infusing well. needs attended, call light in reach. will continue to monitor, until sbar reporting given to am rn. Addendum: 09/27/21 at 0628 by Patrick Varela RN wrong entry, disregard.
[2021-09-27] MEDS: LevALBUTEROL HCL 1.25 MG/0.5 ML *CONC.* VIAL.NEB (XOPENEX CONC.) INH SCH ×2 (07:34→15:24)
[2021-09-27] MEDS: FINASTERIDE 5 MG TABLET (PROSCAR) PO SCH (09:00)
[2021-09-27] MEDS: BISACODYL 10 MG/SUPPOSITORY RC SCH (09:00)
[2021-09-27] MEDS: CEFEPIME 0.5 GM in D5W 50 ML IV SCH ×2 (09:00→21:32)
[2021-09-27] MEDS: methylPREDNISolone SOD SUCC/PF 62.5 MG/ML VIAL IVP SCH ×2 (10:33→21:31)
[2021-09-27] MEDS: ASPIRIN 81 MG TABLET(ECOTRIN) PO SCH (10:33)
[2021-09-27] MEDS: APIXABAN 2.5 MG TABLET PO SCH ×2 (10:37→21:34)
[2021-09-27] MEDS: MULTIVITAMINS TAB 1 TABLET PO SCH (10:38)
[2021-09-27] MEDS: MEMANTINE HCL 5 MG TABLET PO SCH (10:38)
[2021-09-27] MEDS: POLYETHYLENE GLYCOL 3350, 17 GM/ POWD.PACK PO SCH ×2 (10:38→21:31)
[2021-09-27] MEDS: TAMSULOSIN HCL 0.4 MG CAP PO SCH ×2 (10:38→21:31)
[2021-09-27] MEDS: SACUBITRIL/VALSARTAN 24 MG-26 MG 1 TABLET PO SCH (10:54)
[2021-09-27 12:00] VITALS: BP_SYST 158
[2021-09-27 19:00] VITALS: BP_SYST 148
--- NOTE | 2021-09-27 19:15 | NUR ---
change of shift.pt.presents quiescent affect;calm,somnolent.pt.presents g-tube intact g-tube feed;glucerna;1.2 infusing;rate: 40ml/hr.pt.presents iv access location.lt.forearm intact iv fluids infusing.no frazier cath extant.pt.receiving the administration o2 therapy via nasal cannulae;rate:2l/min.call light/telephone w/in access of the pt.
[2021-09-27 20:00] VITALS: BP_SYST 148
--- NOTE | 2021-09-27 20:00 | NUR ---
pt.assessed.v/s assessed values wnl.iv access intact iv fluids infusing.g-tube intact g-tube feed infusing.per flacc pain mgx pt.absent facial grimaces/body posturing.pt.assessed for cleanliness.pt.repositioned.call light/telephone w/in access of the pt.o2-sat%=98%.
[2021-09-27] MEDS: D5/0.45 NS 1,000 ML IV SCH (21:00)
--- NOTE | 2021-09-27 21:00 | NUR ---
2100pmedications administered.medications administered via the g-tube intact flushes w/out resistance.g-tube feed residuals assessed note;residuals>160ml;to hold g-tube feed.re-assess the g-tube residuals.abx;flagyl,maxipime administered via peripheral iv access intact.call light/telephone w/in access of the pt.
[2021-09-27] MEDS: ATORVASTATIN 20 MG TABLET PO SCH (21:31)
--- NOTE | 2021-09-27 22:00 | NUR ---
pt.assessed.pt.presents quiescent affect;calm,somnolent.per flacc pain mgx pt.absent facial grimaces/body posturing.iv access intact iv fluids infusing.g-tube intact.pt.assessed for cleanliess.pt.repositioned.call light/telephone placed w/in access of the pt.
--- NOTE | 2021-09-28 | NUR ---
pt.assessed.v/s assessed note value wnl.g-tube intact g-tube feed residuals assessed note >100ml.to remain g-tube feed hold.blood glucose assessed value:176mg/dl.insulin;regular:2-u administered.pee flacc pain mgx pt.absent facial grimaces/body posturing.pt.assessed for cleanliness.pte.repositioned.call light/telephone placed w/in access of the pt.
[2021-09-28 00:09] VITALS: BP_SYST 136
[2021-09-28] MEDS: INSULIN REGULAR, HUMAN 100 UNITS/ML, 10 ML VIAL (humuLIN R) SUBCUT PRN ×2 (00:16→05:41)
--- NOTE | 2021-09-28 02:00 | NUR ---
pt.assessed.pt.presents quiescent affect;calm,somnolent.iv access intact iv fluids infusing.g-tube intact.per flacc pain mgx pt.absent facial grimaces/body/posturing.pt.assessed for cleanliness.pt.repositioned.call light/telephone placed w/in access of the pt.
[2021-09-28] MEDS: LevALBUTEROL HCL 1.25 MG/0.5 ML *CONC.* VIAL.NEB (XOPENEX CONC.) INH SCH ×4 (02:07→23:13)
--- NOTE | 2021-09-28 04:00 | NUR ---
pt.assessed.pt.presents quiescent affect;calm,somnolent.iv access intact iv fluids infusing.g-tube intact.pt.assessed for cleanliness.pt.repositioned. per flacc pain mgx pt.absent facial grimaces/body posturing.call light/telephone placed w/in access of the pt.
[2021-09-28] MEDS: LEVOTHYROXINE SODIUM 0.025 MG TABLET PO SCH (05:35)
[2021-09-28] MEDS: metroNIDAZOLE 500 mg/NS 100 ML IV SCH ×2 (05:35→15:14)
--- NOTE | 2021-09-28 06:13 | NUR ---
pt.assessed.0600a meds administered.gt feed resumed residuals;10ml.pt.repositioned.call light/telephone placed w/in access of the pt.wound care attended to g tube dsg changed. Addendum: 09/28/21 at 0617 by Yaya Couch RN blood glucose;value 158mg/dl.insulin;regular;2-u administered.
[2021-09-28 06:46] LABS: BASOPHILS # (AUTO) 0.1 K/uL (0.0-0.2); BASOPHILS % (AUTO) 0.5 % (0.0-2.0); HEMATOCRIT 43.3 % (36-54); HEMOGLOBIN 14.2 g/dL (14.0-18.0); LYMPHOCYTES # (AUTO) 0.2 K/uL (1.0-5.5); MEAN CORPUSCULAR HEMOGLOBIN 33 pg (27-31); MEAN CORPUSCULAR HGB CONC 33 % (32-36); MEAN CORPUSCULAR VOLUME 99 fL (79.0-98.0); MONOCYTES # (AUTO) 0.3 K/uL (0.0-1.0); MONOCYTES % (AUTO) 1.7 % (1.7-9.3); NEUTROPHILS # (AUTO) 15.7 K/uL (1.8-7.7); NEUTROPHILS % (AUTO) 96.8 % (40.0-70.0); PLATELET COUNT (AUTO) 89 K/uL (130-430); RED BLOOD CELL COUNT(AUTO) 4.37 MIL/uL (4.2-6.2); RED CELL DISTRIBUTION WIDTH 13.5 % (9.0-15.0); WHITE BLOOD COUNT (AUTO) 16.2 K/uL (4.8-10.8)
[2021-09-28 06:50] LABS: ANION GAP 6 (5-15); CALCIUM 8.5 mg/dL (8.4-11.0); CHLORIDE 104 mmol/L (98-107); GLUCOSE 166 mg/dL (70-99); POTASSIUM 4.5 mmol/L (3.5-5.1); SODIUM SERUM 138 mmol/L (136-145); UREA NITROGEN, BLOOD 31 mg/dL (8-21)
[2021-09-28 08:00] VITALS: BP_SYST 139
[2021-09-28] MEDS: CEFEPIME 0.5 GM in D5W 50 ML IV SCH ×2 (09:00→23:33)
[2021-09-28] MEDS: CITALOPRAM HYDROBROMIDE 20 MG TABLET PO SCH (09:00)
[2021-09-28] MEDS: methylPREDNISolone SOD SUCC/PF 62.5 MG/ML VIAL IVP SCH ×2 (09:00→23:34)
[2021-09-28] MEDS: MULTIVITAMINS TAB 1 TABLET PO SCH (09:00)
[2021-09-28] MEDS: ASPIRIN 81 MG TABLET(ECOTRIN) PO SCH (09:00)
[2021-09-28] MEDS: TAMSULOSIN HCL 0.4 MG CAP PO SCH ×2 (09:00→23:34)
[2021-09-28] MEDS: SACUBITRIL/VALSARTAN 24 MG-26 MG 1 TABLET PO SCH (09:00)
[2021-09-28] MEDS: BISACODYL 10 MG/SUPPOSITORY RC SCH (09:00)
[2021-09-28] MEDS: POLYETHYLENE GLYCOL 3350, 17 GM/ POWD.PACK PO SCH ×2 (09:00→23:34)
[2021-09-28] MEDS: MEMANTINE HCL 5 MG TABLET PO SCH (09:00)
[2021-09-28] MEDS: APIXABAN 2.5 MG TABLET PO SCH ×2 (09:00→23:37)
[2021-09-28] MEDS: FINASTERIDE 5 MG TABLET (PROSCAR) PO SCH (09:00)
--- NOTE | 2021-09-28 10:58 | NUR ---
Nutrition F/U: RD reviewed pt's current EMR record including diet Hx, physician notes, nursing notes, pertinent labs/meds/procedures, care trends, and care activity. Admitting Diagnosis : Bilat pneumonia Medical History Comment: HTN, CHF, hypothyroidism, BPH, dementia per physician notes SARS-CoV-2 Ag (Rapid) Negative 09/15 & (PCR) Negative 09/15 Subjective Information: Pt was seen in bed, non-verbal, on nasal cannula. Per EMR review, pt is S/P PEG placement on 09/23. On 09/25 pt had mild to moderate abd distention and on 09/26 KUB showed fecal impaction. Pt was then started on a bowel regimen and has been having BMs over the weekend. BM 09/27 x2 and abdomen is firm and distended w/ hypoactive bowel sounds. Dionicio scale: 11, pale skin color, pt was seen by adjudication specialist on 09/23 and noted 1. Left Sacral area: Lesion of unknown etiology. Per RN notes, 1+ pitting edema generalized and in right hand and forearm. Pt is stable and ready to go back to his facility a/w Consulting physicians clearance. EN rate: 09/27 40ml; GRV: 0ml 09/26. Current EN remains adequate and appropriate w/ new estimated calorie and protein requirements. RN to verify order for water flush w/ MD. Current Diet Order/Nutrition Support: Glucerna 1.2 at 40ml/hr, Josh BID, FWF 50ml via GT x 2 days Pertinent Medications: solu-medrol, Lipitor, MVI, Synthroid, Miralax, Eliquis Pertinent Labs: (09/28) BH, POC BG 158H; 09/25 TG 169H Height: 5 feet 6.00 inches Weight: 145 pounds/ 65.039047 kilograms (09/18) -stable Body Mass Index: 40 kg/m2 [place]/Adjusted Body Weight: 142#/65 kg NEW Estimated Energy Expenditure (kcals/day) 3753-2643 kcal/day (25-30 kcal/kg CBW d/t Geriatric maintenance) NEW Estimated Protein Required (g/day) 65-78 gm/day (1.5-2 gm/kg CBW d/t Geriatric maintenance) Estimated Fluid Required (l/day) Per physician d/t CHF Problem/Etiology/Signs/Symptoms Increased nutritional needs related to metabolic demands as evidenced by estimated nutritional requirements for acute state. (*ongoing) Suspected chew/swallow difficulty related to unknown etiology as evidenced by PEG placement today. (*ongoing) Expected Outcomes/Goals - Monitor TF tolerance & goal of pt meeting at least 75% of estimated nutritional needs, labs trending WNL, normal GI function, and skin integrity/wt maintenance. Dietitian Recommendations * Recommend continue Glucerna 1.2 at 40ml/hr, Josh BID FWF Per physician d/t CHF - Provides: 1312kcal, 63g protein, 773ml free water. - Meeting 81% of lower end of estimated caloric needs, and 97% of lower end of estimated protein needs. Follow Up High Risk: F/U in 2-3days
[2021-09-28] MEDS: FLUCONAZOLE 100 mg/ NS 50 ML IV SCH (11:00)
[2021-09-28 11:27] VITALS: BP_SYST 130
[2021-09-28] MEDS: METOCLOPRAMIDE HCL 10 MG/2 ML VIAL IVP SCH ×2 (11:30→18:26)
--- NOTE | 2021-09-28 13:29 | NUR ---
Discharge Planning: [facility]ed pt [facility] to [facility] accepted patient waiting for room number. ROSENDO made CM aware. Addendum: 09/28/21 at 1412 by Kiya GRESHAM ROSENDO followed up with pt referral to [facility] (F [phone] P [phone]) Patient accepted to Rm 144A.ROSENDO made CM aware. Addendum: 09/28/21 at 1615 by Kiya Crandall DP ROSENDO followed up on referral to [facility] pt accepted Rm 11, [facility] wanted to know if it would be [facility] made CM aware, no response from [facility]. CM spoke to daughter Lyndsay [phone] she requested information for hospice family wants patinet to come home. [facility] gave the following hospice companies [facility] [phone], [facility] [phone], [facility] [phone], [facility] [phone]. Addendum: 09/28/21 at 1620 by Kiya Crandall DP Disposition 03 Then went to Disposition 50
[2021-09-28 16:00] VITALS: BP_SYST 135
--- NOTE | 2021-09-28 17:19 | NUR ---
Spoke w/ patient's daughter and -They do not want him to go to SNF-they want him to go home w/Home Hospice. They were sent a choice of hospice companies to speak to to determine which hospice they wanted to use for the patient.
[2021-09-28] MEDS: D5/0.45 NS 1,000 ML IV SCH (18:30)
[2021-09-28] MEDS: ATORVASTATIN 20 MG TABLET PO SCH (23:34)
[2021-09-29 00:17] VITALS: BP_SYST 136
[2021-09-29] MEDS: metroNIDAZOLE 500 mg/NS 100 ML IV SCH ×4 (00:20→22:40)
[2021-09-29] MEDS: INSULIN REGULAR, HUMAN 100 UNITS/ML, 10 ML VIAL (humuLIN R) SUBCUT PRN ×4 (01:38→17:52)
[2021-09-29] MEDS: LEVOTHYROXINE SODIUM 0.025 MG TABLET PO SCH (06:47)
[2021-09-29] MEDS: METOCLOPRAMIDE HCL 10 MG/2 ML VIAL IVP SCH ×3 (06:47→17:46)
--- NOTE | 2021-09-29 07:10 | NUR ---
closing note Resting in bed, no distress. IVF infusing well, via IV to LFA, no s/sx of infiltration. Accucheck done; 192mg/dL and covered w/ Regular insulin per sliding scale. G-tube feeding running as ordered at 40ml/hr, residual of 25ml noted and returned. Safety, aspiration precautions observed, will endorse care.
[2021-09-29] MEDS: LevALBUTEROL HCL 1.25 MG/0.5 ML *CONC.* VIAL.NEB (XOPENEX CONC.) INH SCH ×3 (07:33→22:44)
[2021-09-29] MEDS: CEFEPIME 0.5 GM in D5W 50 ML IV SCH ×2 (09:24→21:09)
[2021-09-29] MEDS: BISACODYL 10 MG/SUPPOSITORY RC SCH (09:27)
[2021-09-29] MEDS: POLYETHYLENE GLYCOL 3350, 17 GM/ POWD.PACK PO SCH ×2 (09:27→21:09)
[2021-09-29] MEDS: methylPREDNISolone SOD SUCC/PF 62.5 MG/ML VIAL IVP SCH (09:30)
[2021-09-29] MEDS: MULTIVITAMINS TAB 1 TABLET PO SCH (09:30)
[2021-09-29] MEDS: FINASTERIDE 5 MG TABLET (PROSCAR) PO SCH (09:31)
[2021-09-29] MEDS: MEMANTINE HCL 5 MG TABLET PO SCH (09:31)
[2021-09-29] MEDS: ASPIRIN 81 MG TABLET(ECOTRIN) PO SCH (09:31)
[2021-09-29] MEDS: TAMSULOSIN HCL 0.4 MG CAP PO SCH ×2 (09:31→21:09)
[2021-09-29] MEDS: SACUBITRIL/VALSARTAN 24 MG-26 MG 1 TABLET PO SCH (09:32)
[2021-09-29] MEDS: APIXABAN 2.5 MG TABLET PO SCH ×2 (09:37→21:14)
[2021-09-29 11:35] VITALS: BP_SYST 135
[2021-09-29] MEDS: FLUCONAZOLE 100 mg/ NS 50 ML IV SCH (12:36)
[2021-09-29 12:47] LABS: BASOPHILS % (AUTO) 0.2 % (0.0-2.0); HEMATOCRIT 39.9 % (36-54); HEMOGLOBIN 13.4 g/dL (14.0-18.0); LYMPHOCYTES # (AUTO) 0.1 K/uL (1.0-5.5); LYMPHOCYTES % (AUTO) 0.8 % (20.5-51.5); MEAN CORPUSCULAR HEMOGLOBIN 32 pg (27-31); MEAN CORPUSCULAR HGB CONC 33 % (32-36); MEAN CORPUSCULAR VOLUME 97 fL (79.0-98.0); MONOCYTES # (AUTO) 0.4 K/uL (0.0-1.0); MONOCYTES % (AUTO) 2.9 % (1.7-9.3); NEUTROPHILS # (AUTO) 14.2 K/uL (1.8-7.7); PLATELET COUNT (AUTO) 80 K/uL (130-430); RED BLOOD CELL COUNT(AUTO) 4.13 MIL/uL (4.2-6.2); RED CELL DISTRIBUTION WIDTH 13.6 % (9.0-15.0); WHITE BLOOD COUNT (AUTO) 14.8 K/uL (4.8-10.8)
[2021-09-29 13:21] LABS: NEUTROPHILS % (AUTO) 96.1 % (40.0-70.0)
[2021-09-29 15:41] VITALS: BP_SYST 153
--- NOTE | 2021-09-29 18:23 | NUR ---
INCREASED GTF TO 50ML/HR PER DR MORALES ORDER. PATIENT RESTING IN BED, RESPIRATIONS EVEN AND UL ON 2LNC. IVF INFUSING TO LFA AT 30ML/HR PER ORDER, IV SITE WNL. HOB ELEVATED AT 45 DEGREES, ASPIRATION PRECAUTIONS MAINTAINED AT ALL TIMES. PT KEPT CLEAN AND DRY THROUGHOUT SHIFT, REPOSITIONED Q2HRS AND PRN. BED IN LOWEST POSITION, CALL LIGHT IN REACH, SAFETY MEASURES IN PLACE. WILL CONT TO MONITOR AND ENDORSE TO PM NURSE.
[2021-09-29] MEDS: ATORVASTATIN 20 MG TABLET PO SCH (21:09)
[2021-09-29] MEDS: predniSONE 20 MG TABLET GT SCH (22:30)
[2021-09-29] MEDS: D5/0.45 NS 1,000 ML IV SCH (22:40)
[2021-09-30 01:06] VITALS: BP_SYST 134
--- NOTE | 2021-09-30 02:20 | NUR ---
resting Patient resting in bed, eyes closed, symmetrical rise and fall of chest, nonlabored breathing. IVF infusing well. Repositioned for comfort. Safety precautions in place.
[2021-09-30] MEDS: INSULIN REGULAR, HUMAN 100 UNITS/ML, 10 ML VIAL (humuLIN R) SUBCUT PRN ×4 (05:55→23:14)
[2021-09-30] MEDS: metroNIDAZOLE 500 mg/NS 100 ML IV SCH ×3 (06:31→22:08)
[2021-09-30] MEDS: METOCLOPRAMIDE HCL 10 MG/2 ML VIAL IVP SCH ×3 (06:31→16:51)
[2021-09-30] MEDS: LEVOTHYROXINE SODIUM 0.025 MG TABLET PO SCH (06:31)
[2021-09-30 06:56] LABS: BASOPHILS % (AUTO) 0.1 % (0.0-2.0); HEMOGLOBIN 12.8 g/dL (14.0-18.0); LYMPHOCYTES # (AUTO) 0.1 K/uL (1.0-5.5); LYMPHOCYTES % (AUTO) 0.6 % (20.5-51.5); MEAN CORPUSCULAR HEMOGLOBIN 33 pg (27-31); MEAN CORPUSCULAR HGB CONC 34 % (32-36); MEAN CORPUSCULAR VOLUME 97 fL (79.0-98.0); MONOCYTES # (AUTO) 1.4 K/uL (0.0-1.0); MONOCYTES % (AUTO) 7.7 % (1.7-9.3); NEUTROPHILS % (AUTO) 91.6 % (40.0-70.0); PLATELET COUNT (AUTO) 93 K/uL (130-430); RED BLOOD CELL COUNT(AUTO) 3.94 MIL/uL (4.2-6.2); RED CELL DISTRIBUTION WIDTH 13.7 % (9.0-15.0); WHITE BLOOD COUNT (AUTO) 18.6 K/uL (4.8-10.8)
[2021-09-30 07:48] LABS: ANION GAP 7 (5-15); CALCIUM 8.4 mg/dL (8.4-11.0); CHLORIDE 106 mmol/L (98-107); CREATININE 0.64 mg/dL (0.55-1.30); GLUCOSE 188 mg/dL (70-99); POTASSIUM 4.4 mmol/L (3.5-5.1); SODIUM SERUM 141 mmol/L (136-145); UREA NITROGEN, BLOOD 32 mg/dL (8-21)
[2021-09-30 08:00] VITALS: BP_SYST 151
--- NOTE | 2021-09-30 08:00 | NUR ---
Opening Notes Patient is asleep in bed. Alert and oriented x0. Nonverbal, Arousable to painful stimuli, eyes closed. No resp distress noted at this time, congestion, possible SOTELO/repositioning in bed. Pt remains on 2 liters via NC, tolerated well. Pt shows no signs of pain at this time (FLACC). IV site on left FA 20 gauge intact at this time. D5 1/2NS @ 30 cc/hr, infusing well at this time. Pt remains NPO. GTUBE site intact, dressing clean and dry. Confirmed placement with stethoscope. No residual noted at this time, flushing well. Abdominal binder in place. TF: Glucerna 1.2 @ 50 cc/hr, infusing well. Pericare provided, pt noted with loose dark diarrhea. Repositioned pt in bed with pillows. Bilateral upper arm extremities, pitting edema 1+. HOB at 30 degrees. All needs met at this time. Safety and fall precautions in place. Bed in lowest position, locked. Will continue to monitor.
[2021-09-30] MEDS: CITALOPRAM HYDROBROMIDE 20 MG TABLET PO SCH (09:11)
[2021-09-30] MEDS: predniSONE 20 MG TABLET GT SCH ×2 (09:11→20:10)
[2021-09-30] MEDS: POLYETHYLENE GLYCOL 3350, 17 GM/ POWD.PACK PO SCH ×2 (09:11→20:23)
[2021-09-30] MEDS: MEMANTINE HCL 5 MG TABLET PO SCH (09:11)
[2021-09-30] MEDS: TAMSULOSIN HCL 0.4 MG CAP PO SCH ×2 (09:11→20:10)
[2021-09-30] MEDS: ASPIRIN 81 MG TABLET(ECOTRIN) PO SCH (09:11)
[2021-09-30] MEDS: MULTIVITAMINS TAB 1 TABLET PO SCH (09:11)
[2021-09-30] MEDS: BISACODYL 10 MG/SUPPOSITORY RC SCH (09:12)
[2021-09-30] MEDS: FINASTERIDE 5 MG TABLET (PROSCAR) PO SCH (09:12)
[2021-09-30] MEDS: CEFEPIME 0.5 GM in D5W 50 ML IV SCH ×2 (09:12→20:10)
[2021-09-30] MEDS: APIXABAN 2.5 MG TABLET PO SCH ×2 (09:13→20:22)
[2021-09-30] MEDS: SACUBITRIL/VALSARTAN 24 MG-26 MG 1 TABLET PO SCH (09:17)
[2021-09-30] MEDS: LevALBUTEROL HCL 1.25 MG/0.5 ML *CONC.* VIAL.NEB (XOPENEX CONC.) INH SCH ×3 (09:49→20:07)
--- NOTE | 2021-09-30 10:00 | NUR ---
Notes Patient is sleeping at this time. No resp distress noted. Breathing is even and unlabored. SOTELO. No signs of pain. Will continue to monitor.
--- NOTE | 2021-09-30 10:45 | NUR ---
S/w pharmacy about Eliquis dose and low platelet result. Per pharmacy, Eliquis 5 mf okay to give.
[2021-09-30] MEDS: FLUCONAZOLE 100 mg/ NS 50 ML IV SCH (10:54)
[2021-09-30 11:30] VITALS: BP_SYST 147
--- NOTE | 2021-09-30 12:00 | NUR ---
Notes Patient is sleeping. No acute distress noted. No signs of pain. Will continue to monitor.
--- NOTE | 2021-09-30 14:21 | NUR ---
Spoke w/patient's and daughter. They refused SNF placement, they are planning hospice at home. They will contact [facility] and [facility] and decide which hospice they want for the patient. They will call when they have decided on a hospice agency for the patient
--- NOTE | 2021-09-30 14:26 | NUR ---
Notes Patient is laying in bed, resting. Pt remains on 2 liters via NC, tolerating well. No signs of pain. Family by bedside.
[2021-09-30 15:20] VITALS: BP_SYST 151
--- NOTE | 2021-09-30 16:00 | NUR ---
Notes/Wound Care Patient is laying in bed, resting. Incontinent, noted with diarrhea. Pericare provided, pt left clean and dry. Wound care was provided on sacrum area. Weekly pictures taken, in the patients chart. Repositioned in bed with pillows. No resp distress, remains on 2 liters via NC. No signs of pain. Will continue to monitor.
--- NOTE | 2021-09-30 18:40 | NUR ---
Closing Notes Patient is laying in bed, resting at this time. Alert and oriented x0. Pt remains nonverbal, eyes closed. Mild SOB at rest. Pt remains on 2 liters via NC, tolerating well. No signs of pain at this time. IV site on left FA 20 gauge intact at this time. D5 1/2 NS @ 30 cc/hr, infusing well at this time. GTUBE site intact, dressing clean and dry. TF: Glucerna 1.2 @ 50 cc/hr, infusing well at this time. Pt remains on bedrest at this time. HOB at 30 degrees. All needs met at this time. Safety and fall precautions in place. Bed in lowest position, alarm on, locked. Will continue to monitor.
--- NOTE | 2021-09-30 19:06 | NUR ---
Nurse s/w Coby from [facility] (fax) for the patients following information be to faxed: FACESHEET, H&P, MED LIST and [facility] Order. Endorse to speaking unit assembler. Will have oncoming nurse to follow up.
--- NOTE | 2021-09-30 19:30 | NUR ---
Opening note Received report from day shift. Pt lying in bed, eyes closed receiving breathing treatment from RT, tolerating well. No s/s of acute distress. Tube feeding is running at ordered rate. IV site is intact and patent with fluids running at ordered rate. Fall and safety precautions in place with bed in lowest position, bed alarm on, and call light within reach.
[2021-09-30 20:00] VITALS: BP_SYST 129
[2021-09-30] MEDS: ATORVASTATIN 20 MG TABLET PO SCH (20:10)
[2021-09-30] MEDS: D5/0.45 NS 1,000 ML IV SCH (22:09)
--- NOTE | 2021-10-01 00:15 | NUR ---
Rounds Pt resting in bed. No s/s of acute distress or pain. No needs at this time
[2021-10-01 00:16] VITALS: BP_SYST 109; BP_SYST 132
[2021-10-01] MEDS: metroNIDAZOLE 500 mg/NS 100 ML IV SCH (06:04)
[2021-10-01] MEDS: LEVOTHYROXINE SODIUM 0.025 MG TABLET PO SCH (06:23)
[2021-10-01] MEDS: METOCLOPRAMIDE HCL 10 MG/2 ML VIAL IVP SCH (06:24)
--- NOTE | 2021-10-01 06:50 | NUR ---
Closing note Pt lying in bed, eyes closed. No s/s of acute distress. Tube feeding is running at ordered rate. IV site is intact and patent with fluids running at ordered rate. All needs met throughout shift. Fall and safety precautions in place with bed in lowest position, bed alarm on, and call light within reach.
[2021-10-01] MEDS: LevALBUTEROL HCL 1.25 MG/0.5 ML *CONC.* VIAL.NEB (XOPENEX CONC.) INH SCH ×3 (07:45→23:43)
--- NOTE | 2021-10-01 07:50 | NUR ---
OPENING NOTES: PATIENT RESTING IN BED. BREATHING EVEN AND NON LABORED TO O2 AT 2L/NC. G TUBE AND IV INFUSING WELL. FALL, SAFETY AND ASPIRATION PRECAUTION REINFORCED. BED LOCKED, ALARM ON AND IN LOWEST POSITION. WILL CONTINUE MONITOR PATIENT.
[2021-10-01 07:52] LABS: BASOPHILS % (AUTO) 0.1 % (0.0-2.0); HEMOGLOBIN 11.8 g/dL (14.0-18.0); LYMPHOCYTES # (AUTO) 0.2 K/uL (1.0-5.5); LYMPHOCYTES % (AUTO) 1.6 % (20.5-51.5); MEAN CORPUSCULAR HEMOGLOBIN 33 pg (27-31); MEAN CORPUSCULAR HGB CONC 34 % (32-36); MEAN CORPUSCULAR VOLUME 97 fL (79.0-98.0); MONOCYTES # (AUTO) 1.2 K/uL (0.0-1.0); MONOCYTES % (AUTO) 7.5 % (1.7-9.3); NEUTROPHILS % (AUTO) 90.8 % (40.0-70.0); PLATELET COUNT (AUTO) 86 K/uL (130-430); RED BLOOD CELL COUNT(AUTO) 3.61 MIL/uL (4.2-6.2); RED CELL DISTRIBUTION WIDTH 14.1 % (9.0-15.0); WHITE BLOOD COUNT (AUTO) 15.4 K/uL (4.8-10.8)
[2021-10-01 08:01] VITALS: BP_SYST 143
[2021-10-01 08:12] LABS: ANION GAP 4 (5-15); CALCIUM 8.3 mg/dL (8.4-11.0); CHLORIDE 104 mmol/L (98-107); CREATININE 0.58 mg/dL (0.55-1.30); GLUCOSE 159 mg/dL (70-99); POTASSIUM 4.3 mmol/L (3.5-5.1); SODIUM SERUM 139 mmol/L (136-145); UREA NITROGEN, BLOOD 26 mg/dL (8-21)
[2021-10-01 08:51] VITALS: BP_SYST 109
[2021-10-01] MEDS: BISACODYL 10 MG/SUPPOSITORY RC SCH (09:00)
[2021-10-01] MEDS: POLYETHYLENE GLYCOL 3350, 17 GM/ POWD.PACK PO SCH ×2 (09:00→20:58)
--- NOTE | 2021-10-01 09:48 | NUR ---
Discharge Planning: DCP faxed pt referral to Abbey at [facility] (F [phone] P [phone]).
[2021-10-01] MEDS: MULTIVITAMINS TAB 1 TABLET PO SCH (09:55)
[2021-10-01] MEDS: ASPIRIN 81 MG TABLET(ECOTRIN) PO SCH (09:57)
[2021-10-01] MEDS: APIXABAN 2.5 MG TABLET PO SCH ×2 (09:57→20:50)
[2021-10-01] MEDS: MEMANTINE HCL 5 MG TABLET PO SCH (09:57)
[2021-10-01] MEDS: predniSONE 20 MG TABLET GT SCH ×2 (09:57→20:49)
[2021-10-01] MEDS: CEFEPIME 0.5 GM in D5W 50 ML IV SCH ×2 (09:58→20:50)
[2021-10-01] MEDS: TAMSULOSIN HCL 0.4 MG CAP PO SCH ×2 (10:05→20:49)
[2021-10-01] MEDS: SACUBITRIL/VALSARTAN 24 MG-26 MG 1 TABLET PO SCH (10:05)
[2021-10-01] MEDS: FINASTERIDE 5 MG TABLET (PROSCAR) PO SCH (10:05)
--- NOTE | 2021-10-01 10:42 | NUR ---
SPOKE TO DR. YOUNGER: PER DR. YOUNGER, TO TELL THE PHARMACIST TO STOP THE FLAGYL. PHARMACIST INFORMED.
--- NOTE | 2021-10-01 11:09 | NUR ---
RN NOTES: INCONTINENT CARE DONE. DRESSING AT [facility] CHANGED. ACCUCHECK 138. NO INSULIN COVERAGE. NO S/S OF ACUTE DISTRESS NOTED. BED LOCKED, ALARM ON AND IN LOWEST POSITION.
[2021-10-01 11:27] VITALS: BP_SYST 139
--- NOTE | 2021-10-01 14:26 | NUR ---
[phone] She spoke to DR Moreira yesterday and she will make contact with the patient's regarding hospice evaluation. She was Faxed information requested [phone]
--- NOTE | 2021-10-01 14:39 | NUR ---
Nutrition F/U RD reviewed pt's current EMR record including diet Hx, physician notes, nursing notes, pertinent labs/meds/procedures, care trends, and care activity. Admitting Diagnosis : Bilat pneumonia Medical History Comment: HTN, CHF, hypothyroidism, BPH, dementia per physician notes SARS-CoV-2 Ag (Rapid) Negative 09/15 & (PCR) Negative 09/15 Subjective Information: RD bedside visit deferred d/t high RD load. Per bed huddles this morning, likely plan is for home w/ hospice. Per EMR review, pt is on 2 L O2 via NC; TF Rate: 50 ml 09/30; TF Intakes: 60 ml 10/01; GRV: 5 ml 09/30; last BM x2 10/01; Dionicio scale: 12 -- Service Inspector note 09/23: 1. Left Sacral area: Lesion of unknown etiology. Site has 100% light yellow-white tissue. No odor, no drainage. No tunneling or undermining. Current TF prescription is adequate/appropriate and pt appears to be tolerating TF without difficulties. Current Diet Order/Nutrition Support: Glucerna 1.2 at 60 ml/hr, Josh BID, Free Water Flush: 50 cc via GT x0 days Pertinent Medications: prednisone, SSI, eliquis, D5%-1/2NS at 30 ml/hr (122 kcal/day), lipitor, MVI, synthroid Pertinent Labs: BG 159 H, POC BG 138 H, TG 169 H Height: 5'6" Weight: 14#/66 kg (09/18) -- stable Body Mass Index: 40 kg/m2 [place]/Adjusted Body Weight: 142#/65 kg Estimated Energy Expenditure (kcals/day) 6684-3004 kcal/day (25-30 kcal/kg CBW d/t Geriatric maintenance) Estimated Protein Required (g/day) 65-78 gm/day (1.5-2 gm/kg CBW d/t Geriatric maintenance) Estimated Fluid Required (l/day) Per physician d/t CHF Problem/Etiology/Signs/Symptoms Increased nutritional needs related to metabolic demands as evidenced by estimated nutritional requirements for acute state. (*ongoing) Suspected chew/swallow difficulty related to unknown etiology as evidenced by PEG placement today. (*ongoing) Expected Outcomes/Goals - Monitor TF tolerance & goal of pt meeting at least 75% of estimated nutritional needs, labs trending WNL, normal GI function, and skin integrity/wt maintenance. Dietitian Recommendations * Continue Glucerna 1.2 at 60 ml/hr, Josh BID via GT Provides: 1908 kcal/day, 91 gm protein/day, and 1159 ml free water/day Meets: 91% of upper end of estimated caloric needs and 117% of upper end of estimated protein needs * Free Water Flush per physician d/t CHF Follow Up High Risk: F/U in 2-3 days
--- NOTE | 2021-10-01 14:45 | NUR ---
Dietitian Recommendations * Continue Glucerna 1.2 at 60 ml/hr, Josh BID via GT Provides: 1908 kcal/day, 91 gm protein/day, and 1159 ml free water/day Meets: 91% of upper end of estimated caloric needs and 117% of upper end of estimated protein needs * Free Water Flush per physician d/t CHF LP, RD Please refer to Nutrition F/U for details.
[2021-10-01 15:12] VITALS: BP_SYST 139
[2021-10-01] MEDS: INSULIN REGULAR, HUMAN 100 UNITS/ML, 10 ML VIAL (humuLIN R) SUBCUT PRN (17:32)
--- NOTE | 2021-10-01 18:59 | NUR ---
CLOSING NOTES: PATIENT RESTING IN BED. NO S/S OF ACUTE DISTRESS NOTED. IV AND G TUBE INFUSING WELL. BED LOCKED ALARM ON AND IN LOWEST POSITION. FALL, SAFETY AND ASPIRATION MEASURES RENDERED. CALL LIGHT WITHIN REACH.
--- NOTE | 2021-10-01 19:30 | NUR ---
Opening note Received report from day shift. Pt lying in bed, eyes closed. No s/s of acute distress. Tube feeding is running at ordered rate. IV site is intact and patent with fluids running at ordered rate. Fall and safety precautions in place with bed in lowest position, bed alarm on, and call light within reach.
[2021-10-01 20:00] VITALS: BP_SYST 138
[2021-10-01] MEDS: ATORVASTATIN 20 MG TABLET PO SCH (20:49)
[2021-10-01] MEDS: D5/0.45 NS 1,000 ML IV SCH (20:50)
--- NOTE | 2021-10-02 00:23 | NUR ---
Rounds Pt resting in bed, eyes closed. No s/s of acute distress. Fall and safety checks in place. No needs at this time
[2021-10-02 00:28] VITALS: BP_SYST 126
[2021-10-02] MEDS: LEVOTHYROXINE SODIUM 0.025 MG TABLET PO SCH (06:08)
[2021-10-02] MEDS: INSULIN REGULAR, HUMAN 100 UNITS/ML, 10 ML VIAL (humuLIN R) SUBCUT PRN ×3 (06:16→16:56)
--- NOTE | 2021-10-02 06:58 | NUR ---
Closing note Pt lying in bed, eyes closed. No s/s of acute distress. Tube feeding is running at ordered rate. IV site is intact and patent with fluids running at ordered rate. Fall and safety precautions in place with bed in lowest position, bed alarm on, and call light within reach. All needs met throughout shift
[2021-10-02] MEDS: LevALBUTEROL HCL 1.25 MG/0.5 ML *CONC.* VIAL.NEB (XOPENEX CONC.) INH SCH ×2 (07:42→15:16)
[2021-10-02 08:05] VITALS: BP_SYST 148
[2021-10-02] MEDS: POLYETHYLENE GLYCOL 3350, 17 GM/ POWD.PACK PO SCH ×2 (09:00→20:38)
[2021-10-02] MEDS: BISACODYL 10 MG/SUPPOSITORY RC SCH (09:00)
[2021-10-02] MEDS: predniSONE 20 MG TABLET GT SCH ×2 (09:16→20:35)
[2021-10-02] MEDS: MULTIVITAMINS TAB 1 TABLET PO SCH (09:16)
[2021-10-02] MEDS: TAMSULOSIN HCL 0.4 MG CAP PO SCH ×2 (09:16→20:35)
[2021-10-02] MEDS: MEMANTINE HCL 5 MG TABLET PO SCH (09:16)
[2021-10-02] MEDS: ASPIRIN 81 MG TABLET(ECOTRIN) PO SCH (09:16)
[2021-10-02] MEDS: SACUBITRIL/VALSARTAN 24 MG-26 MG 1 TABLET PO SCH (09:17)
[2021-10-02] MEDS: CEFEPIME 0.5 GM in D5W 50 ML IV SCH ×2 (09:17→20:37)
[2021-10-02] MEDS: CITALOPRAM HYDROBROMIDE 20 MG TABLET PO SCH (09:18)
[2021-10-02] MEDS: APIXABAN 2.5 MG TABLET PO SCH ×2 (09:19→20:36)
[2021-10-02] MEDS: FINASTERIDE 5 MG TABLET (PROSCAR) PO SCH (09:25)
[2021-10-02 12:00] VITALS: BP_SYST 152
[2021-10-02 15:32] VITALS: BP_SYST 138
--- NOTE | 2021-10-02 18:59 | NUR ---
CLOSING NOTES: PATIENT RESTING IN BED. NO S/S OF ACUTE DISTRESS NOTED. IV AND G TUBE INFUSING WELL. BED LOCKED ALARM ON AND IN LOWEST POSITION. FALL, SAFETY AND ASPIRATION MEASURES RENDERED. CALL LIGHT WITHIN REACH. Addendum: 10/02/21 at 1942 by Suzanne Davalos RN DOUBLE CLOSING NOTES
--- NOTE | 2021-10-02 20:17 | NUR ---
RECIEVED PT FROM am NURSE TIM. pT IS AOX0 BED BOUND. HERE FOR ELECTIVE SX PER. VSS SATURATION OF 98% PT HAS G TUBE 60 ML GLUCERNA. 2 L NC, HAD ACCUCHECK Q6. LUNGS SOUNDS CLEAR BREATHING EVEN AND NON LABORED TO O2 AT 2L/NC. . FALL, SAFETY AND ASPIRATION PRECAUTION REINFORCED. BED LOCKED, ALARM ON AND IN LOWEST POSITION. WILL CONTINUE MONITOR PATIENT THROUGH THE NIGHT.
[2021-10-02] MEDS: ATORVASTATIN 20 MG TABLET PO SCH (20:35)
[2021-10-02] MEDS: D5/0.45 NS 1,000 ML IV SCH (20:37)
[2021-10-02 21:58] VITALS: BP_SYST 143
[2021-10-02 22:00] VITALS: BP_SYST 143
[2021-10-03 00:16] VITALS: BP_SYST 132
[2021-10-03] MEDS: LEVOTHYROXINE SODIUM 0.025 MG TABLET PO SCH (05:56)
[2021-10-03] MEDS: INSULIN REGULAR, HUMAN 100 UNITS/ML, 10 ML VIAL (humuLIN R) SUBCUT PRN ×4 (06:02→23:11)
[2021-10-03] MEDS: LevALBUTEROL HCL 1.25 MG/0.5 ML *CONC.* VIAL.NEB (XOPENEX CONC.) INH SCH ×3 (07:28→20:39)
[2021-10-03 08:00] VITALS: BP_SYST 136
[2021-10-03 08:01] LABS: BASOPHILS % (AUTO) 0.4 % (0.0-2.0); HEMATOCRIT 36.3 % (36-54); HEMOGLOBIN 12.4 g/dL (14.0-18.0); LYMPHOCYTES # (AUTO) 0.2 K/uL (1.0-5.5); LYMPHOCYTES % (AUTO) 1.7 % (20.5-51.5); MEAN CORPUSCULAR HEMOGLOBIN 33 pg (27-31); MEAN CORPUSCULAR HGB CONC 34 % (32-36); MEAN CORPUSCULAR VOLUME 97 fL (79.0-98.0); MONOCYTES # (AUTO) 1.1 K/uL (0.0-1.0); MONOCYTES % (AUTO) 10.1 % (1.7-9.3); NEUTROPHILS # (AUTO) 9.7 K/uL (1.8-7.7); NEUTROPHILS % (AUTO) 87.8 % (40.0-70.0); PLATELET COUNT (AUTO) 89 K/uL (130-430); RED BLOOD CELL COUNT(AUTO) 3.75 MIL/uL (4.2-6.2); RED CELL DISTRIBUTION WIDTH 14.5 % (9.0-15.0)
[2021-10-03] MEDS: BISACODYL 10 MG/SUPPOSITORY RC SCH (09:00)
[2021-10-03] MEDS: FINASTERIDE 5 MG TABLET (PROSCAR) PO SCH (09:00)
[2021-10-03] MEDS: CEFEPIME 0.5 GM in D5W 50 ML IV SCH ×2 (10:04→21:53)
[2021-10-03] MEDS: MULTIVITAMINS TAB 1 TABLET PO SCH (10:05)
[2021-10-03] MEDS: SACUBITRIL/VALSARTAN 24 MG-26 MG 1 TABLET PO SCH (10:05)
[2021-10-03] MEDS: TAMSULOSIN HCL 0.4 MG CAP PO SCH ×2 (10:05→21:50)
[2021-10-03] MEDS: predniSONE 20 MG TABLET GT SCH ×2 (10:05→21:50)
[2021-10-03] MEDS: ASPIRIN 81 MG TABLET(ECOTRIN) PO SCH (10:05)
[2021-10-03] MEDS: MEMANTINE HCL 5 MG TABLET PO SCH (10:06)
[2021-10-03] MEDS: APIXABAN 2.5 MG TABLET PO SCH ×2 (10:07→21:51)
[2021-10-03] MEDS: POLYETHYLENE GLYCOL 3350, 17 GM/ POWD.PACK PO SCH ×2 (10:14→21:00)
[2021-10-03 10:18] LABS: ANION GAP 4 (5-15); CALCIUM 8.3 mg/dL (8.4-11.0); CHLORIDE 101 mmol/L (98-107); CREATININE 0.66 mg/dL (0.55-1.30); GLUCOSE 181 mg/dL (70-99); POTASSIUM 4.2 mmol/L (3.5-5.1); SODIUM SERUM 137 mmol/L (136-145); UREA NITROGEN, BLOOD 20 mg/dL (8-21)
[2021-10-03 12:00] VITALS: BP_SYST 126
[2021-10-03 16:00] VITALS: BP_SYST 108
[2021-10-03] MEDS: ATORVASTATIN 20 MG TABLET PO SCH (21:50)
[2021-10-03] MEDS: D5/0.45 NS 1,000 ML IV SCH (21:54)
[2021-10-04 00:15] VITALS: BP_SYST 153
[2021-10-04] MEDS: LEVOTHYROXINE SODIUM 0.025 MG TABLET PO SCH (06:31)
--- NOTE | 2021-10-04 08:00 | NUR ---
noted coarse crackles. secretions suctioned. RT notified.
[2021-10-04] MEDS: LevALBUTEROL HCL 1.25 MG/0.5 ML *CONC.* VIAL.NEB (XOPENEX CONC.) INH SCH ×3 (08:25→20:23)
--- NOTE | 2021-10-04 08:25 | NUR ---
RT NOTE: 0825 Post tx and NTS, placed on 2LPM NC. SpO2 remains at 100%. Will continue to monitor pt. Addendum: 10/04/21 at 0910 by Opal Hernandez RT Amended: Links added.
[2021-10-04] MEDS: CEFEPIME 0.5 GM in D5W 50 ML IV SCH ×2 (09:00→22:14)
--- NOTE | 2021-10-04 09:50 | NUR ---
called and spoke Dr Schneider for congestion with order for STAT chest xray . radiology notified. Diarrhea also noted with order to discontinue dulcolax supp and miralax . carried out.
[2021-10-04] MEDS: predniSONE 20 MG TABLET GT SCH ×2 (10:38→22:09)
[2021-10-04] MEDS: ASPIRIN 81 MG TABLET(ECOTRIN) PO SCH (10:38)
[2021-10-04] MEDS: FINASTERIDE 5 MG TABLET (PROSCAR) PO SCH (10:38)
[2021-10-04] MEDS: TAMSULOSIN HCL 0.4 MG CAP PO SCH ×2 (10:38→22:09)
[2021-10-04] MEDS: SACUBITRIL/VALSARTAN 24 MG-26 MG 1 TABLET PO SCH (10:38)
[2021-10-04] MEDS: MULTIVITAMINS TAB 1 TABLET PO SCH (10:39)
[2021-10-04] MEDS: MEMANTINE HCL 5 MG TABLET PO SCH (10:39)
[2021-10-04] MEDS: APIXABAN 2.5 MG TABLET PO SCH ×2 (10:47→22:10)
[2021-10-04 12:44] VITALS: BP_SYST 111
[2021-10-04] MEDS: INSULIN REGULAR, HUMAN 100 UNITS/ML, 10 ML VIAL (humuLIN R) SUBCUT PRN ×2 (12:57→18:09)
[2021-10-04] MEDS: D5/0.45 NS 1,000 ML IV SCH ×2 (13:04→22:17)
[2021-10-04 16:03] VITALS: BP_SYST 114
--- NOTE | 2021-10-04 18:01 | NUR ---
KEVAN MIKE PATIENT'S WHO STATED THAT THE FAMILY HAS NOT MADE DECISION WITH HOSPICE YET
[2021-10-04] MEDS: ATORVASTATIN 20 MG TABLET PO SCH (22:09)
[2021-10-05 01:04] VITALS: BP_SYST 119
[2021-10-05] MEDS: INSULIN REGULAR, HUMAN 100 UNITS/ML, 10 ML VIAL (humuLIN R) SUBCUT PRN ×2 (01:14→18:43)
[2021-10-05] MEDS: LEVOTHYROXINE SODIUM 0.025 MG TABLET PO SCH (06:11)
[2021-10-05] MEDS: LevALBUTEROL HCL 1.25 MG/0.5 ML *CONC.* VIAL.NEB (XOPENEX CONC.) INH SCH ×3 (07:24→20:23)
[2021-10-05 08:00] VITALS: BP_SYST 144
[2021-10-05] MEDS: CITALOPRAM HYDROBROMIDE 20 MG TABLET PO SCH (10:47)
[2021-10-05] MEDS: ASPIRIN 81 MG TABLET(ECOTRIN) PO SCH (10:48)
[2021-10-05] MEDS: MULTIVITAMINS TAB 1 TABLET PO SCH (10:48)
[2021-10-05] MEDS: SACUBITRIL/VALSARTAN 24 MG-26 MG 1 TABLET PO SCH (10:48)
[2021-10-05] MEDS: TAMSULOSIN HCL 0.4 MG CAP PO SCH ×2 (10:48→21:59)
[2021-10-05] MEDS: FINASTERIDE 5 MG TABLET (PROSCAR) PO SCH (10:49)
[2021-10-05] MEDS: MEMANTINE HCL 5 MG TABLET PO SCH (10:49)
[2021-10-05] MEDS: predniSONE 20 MG TABLET GT SCH ×2 (10:50→21:59)
[2021-10-05] MEDS: APIXABAN 2.5 MG TABLET PO SCH ×2 (10:50→21:58)
[2021-10-05] MEDS: CEFEPIME 0.5 GM in D5W 50 ML IV SCH (10:52)
[2021-10-05 11:36] VITALS: BP_SYST 152
--- NOTE | 2021-10-05 13:12 | NUR ---
Nutrition F/U RD reviewed pt's current EMR record including diet Hx, physician notes, nursing notes, pertinent labs/meds/procedures, care trends, and care activity. Admitting Diagnosis : Bilat pneumonia Medical History Comment: HTN, CHF, hypothyroidism, BPH, dementia per physician notes 09/23 S/P PEG placement SARS-CoV-2 Ag (Rapid) Negative 09/15 & (PCR) Negative 09/15 Subjective Information: RD observed EN infusing as ordered. Pt is stable and EN is well tolerated. Per EMR review, pt is on 2L NC, abdomen is soft and nondistended w/ active bowel sounds, BM 10/05 x2, pt is pending hospice eval. teaching specialists saw pt on 09/23 and noted: 1. Left Sacral area: Lesion of unknown etiology. Dionicio scale: 8, pt w/ pale skin color per RN notes and non-pitting generalized edema and 1+ pitting edema to right hand and forearm. EN rate: 60ml (10/04), GRV: 20ml (10/04). Current EN regimen remains adequate and appropriate. RN to clarify order for water flushes. Current Diet Order/Nutrition Support: Glucerna 1.2 at 60 ml/hr, Josh BID, Free Water Flush: 50 cc via GT x4 days Pertinent Medications: prednisone, SSI, eliquis, D5%-1/2NS at 30 ml/hr (122 kcal/day), lipitor, MVI, synthroid Pertinent Labs: BG 181 H, POC BG 149 H Height: 5'6" Weight: 145#/66 kg (09/18) -- stable Body Mass Index: 40 kg/m2 [place]/Adjusted Body Weight: 142#/65 kg Estimated Energy Expenditure (kcals/day) 8049-5825 kcal/day (25-30 kcal/kg CBW d/t Geriatric maintenance) Estimated Protein Required (g/day) 65-78 gm/day (1.5-2 gm/kg CBW d/t Geriatric maintenance) Estimated Fluid Required (l/day) Per physician d/t CHF Problem/Etiology/Signs/Symptoms Increased nutritional needs related to metabolic demands as evidenced by estimated nutritional requirements for acute state. (*ongoing) Suspected chew/swallow difficulty related to unknown etiology as evidenced by PEG placement today. (*ongoing) Expected Outcomes/Goals - Monitor TF tolerance & goal of pt meeting at least 75% of estimated nutritional needs, labs trending WNL, normal GI function, and skin integrity/wt maintenance. Dietitian Recommendations * Continue Glucerna 1.2 at 60 ml/hr, Josh BID via GT Provides: 1908 kcal/day, 91 gm protein/day, and 1159 ml free water/day Meets: 91% of upper end of estimated caloric needs and 117% of upper end of estimated protein needs * Free Water Flush per physician d/t CHF Follow Up High Risk: F/U in 2-3 days
--- NOTE | 2021-10-05 14:18 | NUR ---
CM: Late entry, discussed dcp to home with hospice with Lyndsay on Tuesday, Lyndsay still has not signed up with any hospice. Stated still making decision. In addition, she did not want pt discharge untill antibiotic is completed. I called her again today, LVM notified the IV abx is completed today and Dr Ani rizoays discharge to go home or snf . Family can work with hospice at home or at the facility.
[2021-10-05 16:28] VITALS: BP_SYST 144
--- NOTE | 2021-10-05 16:53 | NUR ---
PAGED DR MORALES REGARDING PATIENT NEEDED A MIDLINE FOR IVF, IV ABT, AND IV PRN MEDS. AWAITING FOR CALL BACK.
--- NOTE | 2021-10-05 19:20 | NUR ---
1715: RECEIVED A CALL BACK FROM DR MORALES. MD WAS PAGED TO REQUEST PATIENT TO HAVE A MIDLINE DUE TO PATIENT IS HARD STICK EVEN WITH USING THE VEIN FINDER. NEEDED A LONG LASTING IV DUE TO IVF AND IV ABT. MD HOWEVER HANGED UP THE PHONE. NO CALL BACKED FROM MD AT ALL. PATIENT STILL HAVE THE RFA 20 GAUGE IV. MADE AWARE TO CHARGE NURSE MD MEGAN DID NOT CALL BACK AFTER HANGING THE PHONE. 1900: FAMILY AT THE BEDSIDE. PATIENT HAS BEEN SUCTION INTERMITTENTLY THROUGHOUT THE DAY DUE TO CONGESTION. NO ADDITIONAL DISTRESS NOTED. STABLE CONDITION THROUGHOUT THE SHIFT. WOUND CARE WAS DONE TO COCCYX STAGE 1. CLEANSE WITH NS, APPLIED SKIN CREAM BARRIER, AND COVER WITH OPTIFOAM. TURNED PATIENT Q2HRS. 1920: SBAR ENDORSE TO NEXT SHIFT RN. PATIENT IS RESTING IN BED QUIETLY. STABLE AT THIS TIME. FAMILY AT THE BEDSIDE.
[2021-10-05 20:00] VITALS: BP_SYST 119
[2021-10-05] MEDS: ATORVASTATIN 20 MG TABLET PO SCH (21:57)
[2021-10-06] MEDS: INSULIN REGULAR, HUMAN 100 UNITS/ML, 10 ML VIAL (humuLIN R) SUBCUT PRN ×2 (01:27→06:59)
[2021-10-06 01:28] VITALS: BP_SYST 114
[2021-10-06] MEDS: LEVOTHYROXINE SODIUM 0.025 MG TABLET PO SCH (07:00)
[2021-10-06] MEDS: LevALBUTEROL HCL 1.25 MG/0.5 ML *CONC.* VIAL.NEB (XOPENEX CONC.) INH SCH ×3 (07:21→20:14)
[2021-10-06] MEDS: predniSONE 20 MG TABLET GT SCH (09:00)
[2021-10-06] MEDS: SACUBITRIL/VALSARTAN 24 MG-26 MG 1 TABLET PO SCH ×2 (09:00→12:08)
[2021-10-06 10:19] LABS: BASOPHILS % (AUTO) 0.3 % (0.0-2.0); EOSINOPHILS % (AUTO) 0.1 % (0.0-4.0); HEMATOCRIT 38.1 % (36-54); LYMPHOCYTES # (AUTO) 0.4 K/uL (1.0-5.5); LYMPHOCYTES % (AUTO) 4.1 % (20.5-51.5); MEAN CORPUSCULAR HEMOGLOBIN 33 pg (27-31); MEAN CORPUSCULAR HGB CONC 34 % (32-36); MEAN CORPUSCULAR VOLUME 97 fL (79.0-98.0); MONOCYTES # (AUTO) 1.7 K/uL (0.0-1.0); NEUTROPHILS # (AUTO) 7.7 K/uL (1.8-7.7); NEUTROPHILS % (AUTO) 78.5 % (40.0-70.0); RED BLOOD CELL COUNT(AUTO) 3.92 MIL/uL (4.2-6.2); WHITE BLOOD COUNT (AUTO) 9.8 K/uL (4.8-10.8)
[2021-10-06 10:27] LABS: CALCIUM 8.6 mg/dL (8.4-11.0); CHLORIDE 99 mmol/L (98-107); CREATININE 0.52 mg/dL (0.55-1.30); GLUCOSE 137 mg/dL (70-99); POTASSIUM 4.3 mmol/L (3.5-5.1); SODIUM SERUM 133 mmol/L (136-145); UREA NITROGEN, BLOOD 20 mg/dL (8-21)
[2021-10-06] MEDS: ASPIRIN 81 MG TABLET(ECOTRIN) PO SCH (10:33)
[2021-10-06] MEDS: FINASTERIDE 5 MG TABLET (PROSCAR) PO SCH (10:33)
[2021-10-06] MEDS: MEMANTINE HCL 5 MG TABLET PO SCH (10:34)
[2021-10-06] MEDS: TAMSULOSIN HCL 0.4 MG CAP PO SCH ×2 (10:34→21:10)
[2021-10-06] MEDS: MULTIVITAMINS TAB 1 TABLET PO SCH (10:35)
[2021-10-06 10:37] LABS: ANION GAP < 3 (5-15)
[2021-10-06] MEDS: APIXABAN 2.5 MG TABLET PO SCH ×2 (10:39→22:30)
--- NOTE | 2021-10-06 10:51 | NUR ---
UNABLE TO GIVE ENTRESTO, NOT AVAILABLE FROM PHARMACY
[2021-10-06 11:29] VITALS: BP_SYST 147
[2021-10-06 12:00] VITALS: BP_SYST 145
[2021-10-06 12:28] LABS: PLATELET COUNT (AUTO) 88 K/uL (130-430)
--- NOTE | 2021-10-06 15:28 | NUR ---
CM : Fabián MCKEON, director, she received the hospice of choice from cecil Umana. She chose [facility] # [phone]. >> Called [facility], fabián Valencia the consent is in progress and plans to discharge pt tomorrow. The clinicals faxed to # [phone] per request.
--- NOTE | 2021-10-06 19:42 | NUR ---
LATE ENTRY-729 RECEIVED REPORT FROM PM NURSE. PATIENT RESTING IN BED, UNABLE TO ASSESS ORIENTATION, PT IS NON-VERBAL AND DOES NOT FOLLOW COMMANDS OR TRACK WITH EYES. RESPIRATIONS EVEN AND UL ON 2LNC. LS DIMINISHED AT BASES BILAT. GTUBE INTACT AND PATENT, GTF INFUSING PER ORDER, NO RESIDUAL NOTED. IVF INFUSING TO LFA PER ORDER, IV SITE INTACT AND PATENT, WNL. PULSES PALPABLE, GENERALIZED EDEMA TO EXTREMITIES NOTED. BS ACTIVE x4, ABD SOFT AND ROUND. INCONTINENT. SAFETY MEASURES IN PLACE, HOB ELEVATED. 194 NO CHANGES NOTED THROUGHOUT SHIFT. ENDORSED TO PM NURSE FOR CONTINUITY OF CARE. ASPIRATION PRECAUTIONS MAINTAINED AT ALL TIMES THROUGHOUT SHIFT.
[2021-10-06 20:00] VITALS: BP_SYST 134; BP_SYST 146
[2021-10-06] MEDS: ATORVASTATIN 20 MG TABLET PO SCH (21:10)
[2021-10-06] MEDS: D5/0.45 NS 1,000 ML IV SCH (22:27)
[2021-10-07 00:43] VITALS: BP_SYST 155
[2021-10-07] MEDS: INSULIN REGULAR, HUMAN 100 UNITS/ML, 10 ML VIAL (humuLIN R) SUBCUT PRN (01:10)
[2021-10-07] MEDS: LEVOTHYROXINE SODIUM 0.025 MG TABLET PO SCH (06:38)
[2021-10-07] MEDS: LevALBUTEROL HCL 1.25 MG/0.5 ML *CONC.* VIAL.NEB (XOPENEX CONC.) INH SCH (07:20)
--- NOTE | 2021-10-07 07:40 | NUR ---
Initial notes open his eyes, non verbal, does not follow commands. no distress, oral care and suctioning done, repositioned. safety precaution. bed alarm on. will monitor
[2021-10-07 08:03] VITALS: BP_SYST 133
[2021-10-07] MEDS: ASPIRIN 81 MG TABLET(ECOTRIN) PO SCH (08:54)
[2021-10-07] MEDS: CITALOPRAM HYDROBROMIDE 20 MG TABLET PO SCH (08:55)
[2021-10-07] MEDS: FINASTERIDE 5 MG TABLET (PROSCAR) PO SCH (08:55)
[2021-10-07] MEDS: TAMSULOSIN HCL 0.4 MG CAP PO SCH (08:55)
[2021-10-07] MEDS: MULTIVITAMINS TAB 1 TABLET PO SCH (08:55)
[2021-10-07] MEDS: MEMANTINE HCL 5 MG TABLET PO SCH (08:55)
[2021-10-07] MEDS ORDERED: predniSONE 20 MG TABLET GT SCH (09:00)
[2021-10-07] MEDS: APIXABAN 2.5 MG TABLET PO SCH (09:06)
[2021-10-07 11:00] VITALS: BP_SYST 133
[2021-10-07 11:25] VITALS: BP_SYST 130
--- NOTE | 2021-10-07 12:06 | NUR ---
Notes- Repositioned, picture taken on sacral area. oral care done.
--- NOTE | 2021-10-07 13:36 | NUR ---
discharge home with hospice.no belongings
--- NOTE | 2021-10-07 15:27 | NUR ---
FOLLOW UP APPOINTMENT FOR CHF PATIENTS PATIENT WENT HOME ON HOSPICE CARE. FAMILY REFUSED FOLLOW UP APPOINT WITHIN 7 DAYS OF DISCHARGE
== END 2021-10-07 13:35 | disposition hospice, home (50) | DRG 871 ==
LOC: SED 13:09 → STU 18:12 → SIC 09-17 20:10 → STU 09-22 14:42 → SMU 09-23 09:55
PROVIDERS: ADMIT Family Medicine; ATTEND Family Medicine
PROC: 5A09357 Assistance with Respiratory Ventilation, Less than 24 Consecutive Hours, Continuous Positive Airway Pressure (ICD-10-PCS; principal; 2021-09-17)
PROC: 02HV33Z Insertion of Infusion Device into Superior Vena Cava, Percutaneous Approach (ICD-10-PCS; 2021-09-19)
PROC: 0DH63UZ Insertion of Feeding Device into Stomach, Percutaneous Approach (ICD-10-PCS; 2021-09-23)
PROC: 0DB68ZX Excision of Stomach, Via Natural or Artificial Opening Endoscopic, Diagnostic (ICD-10-PCS; 2021-09-23)
PROC: 0DB78ZX Excision of Stomach, Pylorus, Via Natural or Artificial Opening Endoscopic, Diagnostic (ICD-10-PCS; 2021-09-23)
DX: A41.9 Sepsis, unspecified organism (principal); J69.0 Pneumonitis due to inhalation of food and vomit; J96.01 Acute respiratory failure with hypoxia; G93.40 Encephalopathy, unspecified; I42.9 Cardiomyopathy, unspecified; I50.40 Unspecified combined systolic (congestive) and diastolic (congestive) heart failure; I82.A12 Acute embolism and thrombosis of left axillary vein; I11.0 Hypertensive heart disease with heart failure; D69.6 Thrombocytopenia, unspecified; E03.9 Hypothyroidism, unspecified; E78.5 Hyperlipidemia, unspecified; F02.80 Dementia in other diseases classified elsewhere, unspecified severity, without behavioral disturbance, psychotic disturbance, mood disturbance, and anxiety; G30.9 Alzheimer's disease, unspecified; K29.70 Gastritis, unspecified, without bleeding; K29.80 Duodenitis without bleeding; N40.0 Benign prostatic hyperplasia without lower urinary tract symptoms; R13.10 Dysphagia, unspecified; R74.8 Abnormal levels of other serum enzymes; R62.7 Adult failure to thrive; Z20.822 Contact with and (suspected) exposure to COVID-19; Z86.73 Personal history of transient ischemic attack (TIA), and cerebral infarction without residual deficits; Z88.0 Allergy status to penicillin; Z98.2 Presence of cerebrospinal fluid drainage device; Z68.23 Body mass index [BMI] 23.0-23.9, adult; I25.2 Old myocardial infarction; Z79.82 Long term (current) use of aspirin; Z79.899 Other long term (current) drug therapy
CPT/HCPCS: 36415; 36600; 43246; 70450-TC; 71045; 74018; 76376; 80048; 80053; 81000; 82040; 82550; 82803-TC; 82962; 83605; 83735; 83880; 84100; 84478; 84484; 85007; 85025; 85027; 85384; 85610-TC; 85730-TC; 87040-TC; 87081; 92526-GN; 92610-GN; 93005; 93970; 94640; 94660; 94664; 94760; 96361; 96365; 96366; 99285; G0378; J0360; J0456; J0610; J0692; J0696; J1450; J1815; J2175; J2250; J2543; J2765; J2930; J3370; J3490; J7050; J7060; J7512; J7612; Q9967; U0003